=== PATIENT | female | born 1960 | race Caucasian/White ===

== ENCOUNTER 2020-09-16 20:31 | Inpatient (IN) | payer OTHER ==
[2020-09-16 21:26] VITALS: BMI 23.3
[2020-09-16] MEDS ORDERED: Ondansetron PF 4 MG/2 ML Vial IVP PRN (21:37)
--- NOTE | 2020-09-16 22:38 | PDOC.HHP ---
Hospitalist HPI I have problem with my blood History of Present Illness: Patient has 60-year-old female with PMH of autoimmune decompensated cirrhosis (ascites, esophageal varices), and glomerulonephritis (on HD ) who was sent from [facility] rehab by Dr. Vallecillo for treatment of her glomerulonephritis with high-dose steroid. Patient is not exactly sure why she is at the hospital, but she thinks she is here because she has "problem with her blood". Patient was admitted at [facility] in early August for upper GI bleed due to esophageal varices, she subsequently underwent banding. She also required paracentesis. During her admission she was also found to have PAZ, requiring HD, she is currently on // schedule. Kidney biopsy result showed ANCA Vasculitis. Patient is being admitted for high dose steroid treatment. Allergies/Adverse Reactions: Allergy/AdvReac Type Severity Reaction Status Date / Time codeine Allergy Verified 09/16/20 21:21 Past History: PMHx: autoimmune/PBC decompensated cirrhosis (ascites, esophageal varices), and glomerulonephritis (on HD /) PSHx: Right thumb surgery FHx: Noncontributory Social: Former smoker, denies alcohol or drug use Hospitalist HPI ROS Constitutional: denies: fever, chills ENT: denies: throat pain Respiratory: denies: shortness of breath Cardiovascular: denies: chest pain Gastrointestinal: reports: other (Negative for blood in the stool). denies: nausea, vomiting, abdominal pain Genitourinary: denies: dysuria Skin: denies: rash Other: Negative for STALLWORTH All other systems reviewed; all pertinent +/- noted in HPI/Subj Hospitalist Exam Vitals: Weight Weight 119 lb 3.2 oz General Appearance: NAD Eye: PERRL ENT: moist mucosa Neck: supple Heart: RRR, no murmur Respiratory: CTAB Gastrointestinal: soft, non-tender Gastrointestinal - other findings: mildly distended Extremities: no edema Neurological: normal sensation to touch, no weakness Musculoskeletal: normal strength Psychiatric: normal affect, A&O x 3 Hospitalist Results Result Diagrams: 09/16/20 23:55 Hospitalist H&P A/P (1) Glomerulonephritis Code(s): N05.9 - UNSP NEPHRITIC SYNDROME WITH UNSPECIFIED MORPHOLOGIC CHANGES Status: Acute Assessment and Plan: On HD. Recent biopsy done at outside hospital showed ANCA Vasculitis plan: -nephrology consulted -methylprednisolone 125 mg iv daily. Will ask nephrology to adjust the dose (2) Decompensated hepatic cirrhosis Code(s): K72.90 - HEPATIC FAILURE, UNSPECIFIED WITHOUT COMA; K74.60 - UNSPECIFIED CIRRHOSIS OF LIVER Status: Chronic Assessment and Plan: Due to autoimmune hepatitis. Associated with history of esophageal varices and ascites. Plan: -continue Lactulose, Protonix, and midodrine -hold home prednisone, as patient is started on methylprednisolone as above (3) Iron deficiency anemia Code(s): D50.9 - IRON DEFICIENCY ANEMIA, UNSPECIFIED Status: Chronic Qualifiers: Iron deficiency anemia type: chronic blood loss Qualified Code(s): D50.0 - Iron deficiency anemia secondary to blood loss (chronic) Assessment and Plan: No previous Hgb level in chart. It was 8.6 on 09/13 on a lab drawn at outside hospital. Plan: -continue iron supplement
[2020-09-17 00:23] LABS: ALT (SGPT) 13 U/L (8-55); AST (SGOT) 18 U/L (5-34); Alkaline Phosphatase 189 U/L (40-110); Anion Gap 15 mmol/L (10-20); BUN (Urea Nitrogen) 21 mg/dL (9.8-20.1); Bilirubin, Total 0.9 mg/dL (0.2-1.2); Calc. Creatinine Clearance 16 mL/min (70-130); Calcium 7.9 mg/dL (7.8-10.44); Carbon Dioxide 24 mmol/L (23-31); Chloride 100 mmol/L (98-107); Globulin 1.9 g/dL (2.4-3.5); Glucose 154 mg/dL (80-115); Potassium 3.7 mmol/L (3.5-5.1); Protein, Total 4.9 g/dL (5.8-8.1); Sodium 135 mmol/L (136-145)
[2020-09-17 06:01] LABS: INR-International Normal Ratio 1.2; PTT 29.5 sec (22.9-36.1); Prothrombin Time 15.7 sec (12.0-14.7)
[2020-09-17 06:19] LABS: Anion Gap 15 mmol/L (10-20); BUN (Urea Nitrogen) 23 mg/dL (9.8-20.1); CRP (Inflammatory) 2.79 mg/dL (= or < 0.5); Calc. Creatinine Clearance 16 mL/min (70-130); Calcium 7.9 mg/dL (7.8-10.44); Carbon Dioxide 24 mmol/L (23-31); Chloride 100 mmol/L (98-107); Glucose 132 mg/dL (80-115); Potassium 3.8 mmol/L (3.5-5.1); Sodium 135 mmol/L (136-145)
[2020-09-17 06:24] LABS: Band 1 % (5-11); Lymphocytes 56 % (21-51); MDiff Complete? YES; Mean Corpuscular HGB CONC 32.7 g/dL (32.0-36.0); Mean Corpuscular Hemoglobin 28.9 pg (27.0-31.0); Mean Corpuscular Volume 88.2 fL (78.0-98.0); Mean Platelet Volume 8.9 fL (7.4-10.4); Monocytes 6 % (0-10); Neutrophil 37 % (42-75); Platelet Count 72 thou/uL (130-400); Platelet Morphology Comment Appears Decreased; RBC Distribution Width 19.6 % (11.5-14.5); Red Blood Cell (RBC) Count 2.43 mill/uL (4.20-5.40); White Blood Cell (WBC) Count 2.3 thou/uL (4.8-10.8)
[2020-09-17] MEDS ORDERED: methylPREDNISolone Sod Succ/PF 125 MG/2 ML VIAL IVP SCH (09:00)
[2020-09-17] MEDS ORDERED: Sulfameth/Trimethoprim SS 400-80MG TAB PO SCH (09:00)
[2020-09-17] MEDS ORDERED: predniSONE 20 MG TAB PO SCH (09:00)
[2020-09-17] MEDS: Pantoprazole 40 MG GRANULES PACKET PO SCH (09:55)
[2020-09-17] MEDS: Fluconazole 100 MG TAB PO SCH (09:55)
[2020-09-17] MEDS: Midodrine HCl 5 MG TAB PO SCH ×3 (09:56→21:02)
[2020-09-17] MEDS: Ferrous Sulfate 325 MG TAB PO SCH ×2 (09:56→16:54)
[2020-09-17] MEDS: Folic Acid 1 MG TAB PO SCH (09:56)
[2020-09-17] MEDS ORDERED: SODIUM CHLORIDE 0.9% IVPB SCH (10:00)
[2020-09-17] MEDS ORDERED: RITUXAN IVPB SCH (10:00)
[2020-09-17] MEDS: methylPREDNISolone Sod Succ 1 GM in Sodium Chloride 0.9% 250 ML 250 ML IVPB SCH (10:04)
[2020-09-17] MEDS ORDERED: Loperamide HCl 2 MG CAP PO PRN (11:48)
[2020-09-17] MEDS ORDERED: Simethicone Chewable 80 MG TAB PO PRN (11:48)
[2020-09-17] MEDS ORDERED: Acetaminophen 500 MG TAB PO PRN ×2 (11:58→18:18)
[2020-09-17] MEDS ORDERED: Calcium Carbonate 500 MG ChewTAB PO PRN (11:59)
[2020-09-17] MEDS ORDERED: Cholecalciferol 1,000 UNITS (25 MCG) TAB PO SCH (12:00)
--- NOTE | 2020-09-17 12:07 | PDOC.HOSPP ---
- Subjective Encounter Date: 09/17/20 (f/u glomerulonephritis) Encounter Time: 12:04 Subjective: Pt is without complaints. She was admitted overnight for worsening glomerulonephritis for IV steroids in consultation with Dr. Vallecillo. She denies any n/v/abd pain or any pain in general. - Objective Vital Signs & Weight: Vital Signs (12 hours) Temp Pulse Resp BP Pulse Ox 09/17/20 07:00 97.8 F 70 18 109/66 97 09/17/20 05:57 97.7 F 75 20 95/63 96 09/17/20 00:53 98.1 F 70 20 100/59 L 95 Weight Weight 119 lb 3.2 oz Result Diagrams: 09/17/20 05:30 09/17/20 05:30 Hospitalist ROS - Medication Medications: Active Medications Generic Name Dose Route Start Last Admin Trade Name Freq PRN Reason Stop Dose Admin Ferrous Sulfate 325 mg 09/17/20 08:00 09/17/20 09:56 Ferrous Sulfate 325 Mg Tab PO 325 mg BID-WM CHANO Administration Fluconazole 200 mg 09/17/20 09:00 09/17/20 09:55 Fluconazole 100 Mg Tab PO 200 mg DAILY CHANO Administration Folic Acid 1 mg 09/17/20 09:00 09/17/20 09:56 Folic Acid 1 Mg Tab PO 1 mg DAILY CHANO Administration Methylprednisolone Sodium 266 mls @ 266 mls/hr 09/17/20 09:00 09/17/20 10:04 Succinate 1 gm/ Sodium IVPB 09/19/20 09:59 266 mls Chloride DAILY CHANO Administration Lactulose 30 gm 09/17/20 09:00 09/17/20 10:03 Lactulose 20 Gm/30 Ml Udcup PO 30 gm BID CHANO Administration Midodrine 10 mg 09/17/20 09:00 09/17/20 09:56 Midodrine Hcl 5 Mg Tab PO 10 mg TID CHANO Administration Pantoprazole Sodium 40 mg 09/17/20 09:00 09/17/20 09:55 Pantoprazole 40 Mg Granules Packet PO 40 mg DAILY CHANO Administration Hospitalist Exam Vitals: Vital Signs (12 hours) Temp Pulse Resp BP Pulse Ox 09/17/20 07:00 97.8 F 70 18 109/66 97 09/17/20 05:57 97.7 F 75 20 95/63 96 09/17/20 00:53 98.1 F 70 20 100/59 L 95 Weight Weight 119 lb 3.2 oz General Appearance: NAD Heart: RRR, no murmur Respiratory: CTAB, no wheezes, no rales, no ronchi Gastrointestinal: soft, non-tender, normal bowel sounds Extremities: no cyanosis, no clubbing Extremities - other findings: 1+ edema bilateral Psychiatric: normal affect Hosp A/P (1) Glomerulonephritis Code(s): N05.9 - UNSP NEPHRITIC SYNDROME WITH UNSPECIFIED MORPHOLOGIC CHANGES Status: Acute (2) Decompensated hepatic cirrhosis Code(s): K72.90 - HEPATIC FAILURE, UNSPECIFIED WITHOUT COMA; K74.60 - UNSPECIFIED CIRRHOSIS OF LIVER Status: Chronic (3) Iron deficiency anemia Code(s): D50.9 - IRON DEFICIENCY ANEMIA, UNSPECIFIED Status: Chronic Qualifiers: Iron deficiency anemia type: chronic blood loss Qualified Code(s): D50.0 - Iron deficiency anemia secondary to blood loss (chronic) - Plan Glomerulonephritis on hemodialysis - now on IV solumedrol in consultation with Dr. Vallecillo/Nephrology Decompensated autoimmune hepatitis with cirrhosis - continue home meds of lactulose, protonix, midodrine Pancytopenia - leukopenia and thrombocytopenia appear new with this hospitalization - will t rend - anemia - has been present. - type and screen ordered dvt prophy - has annalise valera gi prophy - on PPI code status - full reveiwed plan of care with patient, no questions or further needs at end of eval
[2020-09-17 17:55] LABS: SARS-CoV-2 PCR by NAA Not Detected (NotDetected)
--- NOTE | 2020-09-17 19:30 | CON ---
DATE OF CONSULTATION: 09/17/2020 SERVICE: Nephrology. REASON FOR CONSULTATION: Acute renal failure. REQUESTING PHYSICIAN: . 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 [facility] to acute onset of hematemesis and acute blood loss anemia. She was found to have a creatinine of 15 and also acute blood loss anemia and abnormal liver enzymes. EGD was done and she was found to have esophageal varices, status post banding and also was resuscitated with blood transfusion. During the hospitalization at [facility], the patient was evaluated further with renal biopsy. Initially, acute renal failure was thought to be due to hepatorenal syndrome, but later due to renal biopsy, was thought to have pauci-immune necrotizing and crescentic glomerulonephritis. The patient also had paracenteses at the hospital and was subsequently started on hemodialysis Saturday, , Saturday and subsequently discharged to rehab for further restorative therapy. Since admission at the [facility], the patient has been making some urine intermittently. 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 The patient also was found to have a positive ANCA of myeloperoxidase type as well as a positive Mitochondrial antibody and Actin antibody. The patient also was seen by GI and impression of autoimmune hepatitis leading to cirrhosis was also made. Of note, the patient was only treated with steroid, which was continued at discharge and there was no treatment for the crescentic glomerulonephritis. The patient denied prior history of renal pathology prior to hospitalization and medical record of 10 from [facility], where she was admitted late May and early June 2020, showed creatinine of 0.5. PAST MEDICAL HISTORY: 1. Liver cirrhosis. 2. Acute renal failure. 3. GI bleeding status post blood transfusion. 4. Esophageal varices status post banding. PAST SURGICAL HISTORY: 1. Paracenteses. 2. Renal biopsy. 3. EGD. FAMILY HISTORY: Reviewed, but noncontributory. SOCIAL HISTORY: Denied smoking, alcohol, or recreational drug use. ALLERGIES: REPORTED ALLERGIC AND ADVERSE REACTION TO CODEINE. MEDICATIONS: Prior to hospital medications, none. At the rehab, the patient was on the following medications: 1. Acetaminophen. 2. Trazodone 25 at bedtime. 3. Ferrous sulfate 325 mg p.o. b.i.d. 4. Folic acid 1 mg p.o. daily. 5. Propranolol 10 mg p.o. t.i.d. 6. Lactulose 20 mg p.o. b.i.d. 7. Midodrine 5 mg p.o. t.i.d. 8. Prednisone 30 mg p.o. daily. 9. Vitamin D 5000 units daily. 10. Rifaximin 550 mg p.o. b.i.d. REVIEW OF SYSTEMS: 12-point review of system performed was negative other than pertinent positives and negatives included in the history of present illness. PHYSICAL EXAMINATION: VITAL SIGNS: Temperature 97.8, pulse 70, respiratory rate 18, SpO2 97% on room air, blood pressure is 109/66. GENERAL: Chronically ill-looking female, frail, in no obvious distress. Anicteric, acyanotic, and afebrile. HEENT: Normocephalic, atraumatic. Oral mucosa is moist. NECK: Supple with no obvious JVD. CARDIOVASCULAR: Regular rhythm and rate with normal heart sounds 1 and 2. RESPIRATORY: Fair air entry bilaterally with no obvious respiratory distress. GI: Full, soft, nontender, nondistended with normal bowel sounds. EXTREMITIES: Trace to mild bilateral leg edema noted. WHEEL LACER AND TRUER: Conscious, alert, oriented x3 with appropriate mental status. Cranial nerves II through XII are grossly intact. The patient moves all extremities. DIAGNOSTIC DATA: CBC earlier today showed WBC count of 2.3, hemoglobin of 7.0, MCV of 88.2, platelet of 72. Coagulation panel showed PT 15.7, INR 1.2, PTT 29.5. Chemistry: Renal panel earlier today showed sodium 135, potassium 3.8, chloride 100, CO2 24, BUN 23, creatinine 3.18, glucose 132, calcium 7.9. ASSESSMENT: 1. 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 Serology was positive for p-ANCA. Of note, the patient had creatinine of 0.5 on June 09, but on August 21, 2020, creatinine was 15.5. She thought renal syndrome as well as hemodynamic factors may have been contributory as patient has acute blood loss anemia at presentation and also was found to have esophageal varices, cirrhosis, and acute blood loss anemia. 2. 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 3. Acute renal failure, now on hemodialysis Saturday, , and Saturday. 4. Liver cirrhosis with peritonitis and esophageal varices status post banding. 5. Acute anemia: Due to acute blood loss anemia requiring transfusion, acute illness as well as anemia of chronic illness and chronic kidney disease. 6. Physical deconditioning. In view of severity of pauci-immune ANCA vasculitis, now with end-organ failure glomerulonephritis, now on hemodialysis. The patient needs treatment as soon as possible, hence decision was made to transfer the patient to the acute hospital for treatment. We will go ahead and start with steroid of 1 g daily. We will also give patient 1 g of rituximab to be repeated in 2 weeks. We will also get CRP, ESR, and urinalysis with microscopy to track treatment surface or otherwise. Monitor H and H and transfuse as needed. Further treatment to follow depending on hospital course. Job ID: [id number]
[2020-09-17 20:22] LABS: Bilirubin Negative (Negative); Blood, Urine 3+ (Negative); Clarity Clear (Clear); Glucose, Urine (Dipstick) Normal (Negative); Ketone, Urine Negative (Negative); Leukocyte 75 Leu/uL (Negative); Nitrite Negative (Negative); Protein, Urine (Dipstick) 70 mg/dL (Neg-Trace); Renal Epithelial 0-3 HPF (None Seen); Specific Gravity, Urine 1.013 (1.002-1.036); Squamous Epithelial None Seen HPF (0-3); Urobilinogen Normal mg/dL (Less than 2); Yeast-Budding 1+ HPF (None Seen); pH, Urine 6.5 (5.0-9.0)
[2020-09-17 20:28] LABS: Bacteria/HPF 1+ HPF (None Seen)
[2020-09-17 20:30] LABS: Creatinine, Urine 112.89 mg/dL (47-110)
[2020-09-17] MEDS: Rifaximin 550 MG TAB PO SCH (21:02)
[2020-09-18 04:10] LABS: #Lymphocytes 0.5 thou/uL (1.20-3.40); #Monocytes 0.4 thou/uL (0.11-0.59); %Basophils 0.6 % (0.0-1.0); %Eosinophils 0.1 % (0.0-10.0); %Lymphocytes 16.9 % (21.0-51.0); %Monocytes 13.8 % (0.0-10.0); %Neutrophils 68.7 % (42.0-75.0); Hemoglobin 7.6 g/dL (12.0-16.0); Mean Corpuscular HGB CONC 32.7 g/dL (32.0-36.0); Mean Corpuscular Hemoglobin 28.9 pg (27.0-31.0); Mean Corpuscular Volume 88.4 fL (78.0-98.0); Mean Platelet Volume 8.8 fL (7.4-10.4); Platelet Count 111 thou/uL (130-400); RBC Distribution Width 20.2 % (11.5-14.5); Red Blood Cell (RBC) Count 2.64 mill/uL (4.20-5.40); White Blood Cell (WBC) Count 2.9 thou/uL (4.8-10.8)
[2020-09-18 04:34] LABS: Anion Gap 18 mmol/L (10-20); BUN (Urea Nitrogen) 38 mg/dL (9.8-20.1); Calc. Creatinine Clearance 13 mL/min (70-130); Calcium 7.8 mg/dL (7.8-10.44); Carbon Dioxide 22 mmol/L (23-31); Chloride 99 mmol/L (98-107); Glucose 138 mg/dL (80-115); Potassium 4.1 mmol/L (3.5-5.1); Sodium 135 mmol/L (136-145)
[2020-09-18] MEDS: methylPREDNISolone Sod Succ 1 GM in Sodium Chloride 0.9% 250 ML 250 ML IVPB SCH (09:33)
[2020-09-18] MEDS: Polyethylene Glycol 3350 17 GM Packet PO SCH (09:39)
[2020-09-18] MEDS: Ferrous Sulfate 325 MG TAB PO SCH ×3 (09:40→16:01)
[2020-09-18] MEDS: Fluconazole 100 MG TAB PO SCH (09:40)
[2020-09-18] MEDS: Rifaximin 550 MG TAB PO SCH ×2 (09:41→20:05)
[2020-09-18] MEDS: Pantoprazole 40 MG GRANULES PACKET PO SCH (09:41)
[2020-09-18] MEDS: Midodrine HCl 5 MG TAB PO SCH ×3 (09:41→20:05)
[2020-09-18] MEDS: Folic Acid 1 MG TAB PO SCH (09:41)
--- NOTE | 2020-09-18 10:46 | PDOC.NEPPN ---
- Subjective Encounter Date: 09/18/20 Subjective: Seen and examined. No new problem. Tolerated rituximad well last night. - Objective Vital Signs & Weight: Vital Signs (12 hours) Temp Pulse Resp BP Pulse Ox 09/18/20 07:27 97.9 F 85 18 88/50 L 96 09/18/20 03:10 105/55 L 09/18/20 03:00 105/55 L 09/18/20 02:30 102/59 L 09/18/20 02:00 113/57 L 09/18/20 01:15 110/56 L 09/18/20 00:45 107/53 L 09/18/20 00:15 105/55 L 09/17/20 23:46 108/54 L 09/17/20 23:06 98.2 F 82 16 115/66 97 Weight Admit Weight 119 lb 3.2 oz Weight 119 lb 3.192 oz I&O: 09/17/20 09/18/20 09/19/20 06:59 06:59 06:59 Intake Total 1120 Balance 1120 Result Diagrams: 09/18/20 03:54 09/18/20 03:54 Nephrology ROS - Medication Medications: Active Medications Generic Name Dose Route Start Last Admin Trade Name Freq PRN Reason Stop Dose Admin Cholecalciferol 5,000 units 09/17/20 12:00 09/17/20 14:54 Cholecalciferol 1,000 Units (25 Mcg) Tab PO 5,000 units Q7D CHANO Administration Ferrous Sulfate 325 mg 09/17/20 08:00 09/18/20 09:41 Ferrous Sulfate 325 Mg Tab PO Not Given BID-[facility] Ferrous Sulfate 325 mg 09/18/20 09:00 09/18/20 09:40 Ferrous Sulfate 325 Mg Tab PO 325 mg DAILY CHANO Administration Fluconazole 200 mg 09/17/20 09:00 09/18/20 09:40 Fluconazole 100 Mg Tab PO 200 mg DAILY CHANO Administration Folic Acid 1 mg 09/17/20 09:00 09/18/20 09:41 Folic Acid 1 Mg Tab PO 1 mg DAILY CHANO Administration Methylprednisolone Sodium 266 mls @ 266 mls/hr 09/17/20 09:00 09/18/20 09:33 Succinate 1 gm/ Sodium IVPB 09/19/20 09:59 266 mls Chloride DAILY CHANO Administration Lactulose 30 gm 09/17/20 09:00 02/07/21 09:40 Lactulose 20 Gm/30 Ml Udcup PO 30 gm BID CHANO Administration Midodrine 10 mg 09/17/20 09:00 09/18/20 09:41 Midodrine Hcl 5 Mg Tab PO 10 mg TID CHANO Administration Pantoprazole Sodium 40 mg 09/17/20 09:00 09/18/20 09:41 Pantoprazole 40 Mg Granules Packet PO 40 mg DAILY CHANO Administration Polyethylene Glycol 17 gm 09/18/20 09:00 09/18/20 09:39 Polyethylene Glycol 3350 17 Gm Packet PO 17 gm DAILY CHANO Administration Rifaximin 550 mg 09/17/20 21:00 09/18/20 09:41 Rifaximin 550 Mg Tab PO 550 mg BID CHANO Administration - Exam General Appearance: awake alert Eye: anicteric sclera ENT: normocephalic atraumatic Neck: symmetric Respiratory: no ronchi, no tachypnea Respiratory - other findings: fair air entry with some transmitted sound Cardiovascular: RRR Gastrointestinal: soft, non-distended, normal bowel sounds Extremities: 1+ LE edema Neurological: CN's grossly intact, no focal deficits Musculoskeletal: generalized weakness, diffuse muscle atrophy PSYCH: A&O x 3 Nephrology Results - Labs Result Diagrams: 09/18/20 03:54 09/18/20 03:54 Lab results: WBC 2.9 thou/uL (4.8-10.8) L 09/18/20 03:54 Hgb 7.6 g/dL (12.0-16.0) L 09/18/20 03:54 Hct 23.3 % (36.0-47.0) L 09/18/20 03:54 MCV 88.4 fL (78.0-98.0) 09/18/20 03:54 Plt Count 111 thou/uL (130-400) L 09/18/20 03:54 Neutrophils % 68.7 % (42.0-75.0) 09/18/20 03:54 Band Neuts % (Manual) 1 % (5-11) L 09/17/20 05:30 ESR Westergren Less than 1 mm/hr (Less than 30) 09/17/20 05:30 Sodium 135 mmol/L (136-145) L 09/18/20 03:54 Potassium 4.1 mmol/L (3.5-5.1) 09/18/20 03:54 Chloride 99 mmol/L (98-107) 09/18/20 03:54 Carbon Dioxide 22 mmol/L (23-31) L 09/18/20 03:54 BUN 38 mg/dL (9.8-20.1) H 09/18/20 03:54 Creatinine 3.70 mg/dL (0.6-1.1) H 09/18/20 03:54 Glucose 138 mg/dL (80-115) H 09/18/20 03:54 Calcium 7.8 mg/dL (7.8-10.44) 09/18/20 03:54 Total Bilirubin 0.9 mg/dL (0.2-1.2) 09/16/20 23:55 AST 18 U/L (5-34) 09/16/20 23:55 ALT 13 U/L (8-55) 09/16/20 23:55 Alkaline Phosphatase 189 U/L (40-110) H 09/16/20 23:55 C-Reactive Protein 2.79 mg/dL (= or < 0.5) H 09/17/20 05:30 Serum Total Protein 4.9 g/dL (5.8-8.1) L 09/16/20 23:55 Albumin 3.0 g/dL (3.4-4.8) L 09/16/20 23:55 Urine Ketones Negative mg/dL (Negative) 09/17/20 18:30 Urine Blood 3+ (Negative) A 09/17/20 18:30 Urine Nitrite Negative (Negative) 09/17/20 18:30 Ur Leukocyte Esterase 75 Yesi/uL (Negative) A 09/17/20 18:30 Urine RBC 11-20 HPF (0-3) A 09/17/20 18:30 Urine WBC 11-20 HPF (0-3) A 09/17/20 18:30 Ur Squamous Epith Cells None Seen HPF (0-3) 09/17/20 18:30 Urine Bacteria 1+ HPF (None Seen) A 09/17/20 18:30 Sodium 135 mmol/L (136-145) L 09/18/20 03:54 Potassium 4.1 mmol/L (3.5-5.1) 09/18/20 03:54 Chloride 99 mmol/L (98-107) 09/18/20 03:54 Carbon Dioxide 22 mmol/L (23-31) L 09/18/20 03:54 Anion Gap 18 mmol/L (10-20) 09/18/20 03:54 BUN 38 mg/dL (9.8-20.1) H 09/18/20 03:54 Creatinine 3.70 mg/dL (0.6-1.1) H 09/18/20 03:54 Glucose 138 mg/dL (80-115) H 09/18/20 03:54 Calcium 7.8 mg/dL (7.8-10.44) 09/18/20 03:54 Albumin 3.0 g/dL (3.4-4.8) L 09/16/20 23:55 Nephrology AP PN - Plan Acute renal failure requiring HD. Last HD on 09/15/20. Due Pauci immune GN. 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 S/p Rituxima on 09/17/20. 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 PCM Acute anemia PLan Continue pulse steroid 1 g daily. last dose tomorrow 09/19/20. No HD today as volume status electrolytes and acid base are acceptable. Start nepro Continue other treatments. Will need repeat Rituxima in 2 weeks. Follow renal function and H/H
--- NOTE | 2020-09-18 11:58 | PDOC.HOSPP ---
- Subjective Encounter Date: 09/18/20 (f/u acute on chronic renal disease) Encounter Time: 11:53 Subjective: Pt without any complaints today. She reports feeling well. She denies any cp/sob/n/v/abd pain. - Objective Vital Signs & Weight: Vital Signs (12 hours) Temp Pulse Resp BP Pulse Ox 09/18/20 11:47 98.2 F 66 18 106/55 L 97 09/18/20 07:27 97.9 F 85 18 88/50 L 96 09/18/20 03:10 105/55 L 09/18/20 03:00 105/55 L 09/18/20 02:30 102/59 L 09/18/20 02:00 113/57 L 09/18/20 01:15 110/56 L 09/18/20 00:45 107/53 L 09/18/20 00:15 105/55 L Weight Admit Weight 119 lb 3.2 oz Weight 119 lb 3.192 oz I&O: 09/17/20 09/18/20 09/19/20 06:59 06:59 06:59 Intake Total 1120 Balance 1120 Result Diagrams: 09/18/20 03:54 09/18/20 03:54 Hospitalist ROS - Medication Medications: Active Medications Generic Name Dose Route Start Last Admin Trade Name Marcq PRN Reason Stop Dose Admin Cholecalciferol 5,000 units 09/17/20 12:00 09/17/20 14:54 Cholecalciferol 1,000 Units (25 Mcg) Tab PO 5,000 units Q7D CAHNO Administration Ferrous Sulfate 325 mg 09/17/20 08:00 09/18/20 09:41 Ferrous Sulfate 325 Mg Tab PO Not Given BID- CHANO Ferrous Sulfate 325 mg 09/18/20 09:00 09/18/20 09:40 Ferrous Sulfate 325 Mg Tab PO 325 mg DAILY CHANO Administration Fluconazole 200 mg 09/17/20 09:00 09/18/20 09:40 Fluconazole 100 Mg Tab PO 200 mg DAILY CHANO Administration Folic Acid 1 mg 09/17/20 09:00 09/18/20 09:41 Folic Acid 1 Mg Tab PO 1 mg DAILY CHANO Administration Methylprednisolone Sodium 266 mls @ 266 mls/hr 09/17/20 09:00 09/18/20 09:33 Succinate 1 gm/ Sodium IVPB 09/19/20 09:59 266 mls Chloride DAILY CHANO Administration Lactulose 30 gm 09/17/20 09:00 09/18/20 09:40 Lactulose 20 Gm/30 Ml Udcup PO 30 gm BID CHANO Administration Midodrine 10 mg 09/17/20 09:00 09/18/20 09:41 Midodrine Hcl 5 Mg Tab PO 10 mg TID CHANO Administration Pantoprazole Sodium 40 mg 09/17/20 09:00 09/18/20 09:41 Pantoprazole 40 Mg Granules Packet PO 40 mg DAILY CHANO Administration Polyethylene Glycol 17 gm 09/18/20 09:00 09/18/20 09:39 Polyethylene Glycol 3350 17 Gm Packet PO 17 gm DAILY CHANO Administration Rifaximin 550 mg 09/17/20 21:00 09/18/20 09:41 Rifaximin 550 Mg Tab PO 550 mg BID CHANO Administration Hospitalist Exam Vitals: Vital Signs (12 hours) Temp Pulse Resp BP Pulse Ox 09/18/20 11:47 98.2 F 66 18 106/55 L 97 09/18/20 07:27 97.9 F 85 18 88/50 L 96 09/18/20 03:10 105/55 L 09/18/20 03:00 105/55 L 09/18/20 02:30 102/59 L 09/18/20 02:00 113/57 L 09/18/20 01:15 110/56 L 09/18/20 00:45 107/53 L 09/18/20 00:15 105/55 L Weight Admit Weight 119 lb 3.2 oz Weight 119 lb 3.192 oz General Appearance: NAD Heart: RRR Respiratory: no wheezes, no rales, no ronchi Gastrointestinal: soft, non-tender, non-distended, normal bowel sounds Extremities: no cyanosis, no clubbing, no edema Psychiatric: normal affect Hosp A/P (1) Glomerulonephritis Code(s): N05.9 - UNSP NEPHRITIC SYNDROME WITH UNSPECIFIED MORPHOLOGIC CHANGES Status: Acute (2) Decompensated hepatic cirrhosis Code(s): K72.90 - HEPATIC FAILURE, UNSPECIFIED WITHOUT COMA; K74.60 - UNSPECIFIED CIRRHOSIS OF LIVER Status: Chronic (3) Iron deficiency anemia Code(s): D50.9 - IRON DEFICIENCY ANEMIA, UNSPECIFIED Status: Chronic Qualifiers: Iron deficiency anemia type: chronic blood loss Qualified Code(s): D50.0 - Iron deficiency anemia secondary to blood loss (chronic) - Plan Glomerulonephritis on hemodialysis - rapidly progressive focal 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 Vallecillo/Nephrology - pt has received 1 dose of rituximab Decompensated autoimmune hepatitis with cirrhosis - continue home meds of lactulose, protonix, midodrine Pancytopenia - leukopenia and thrombocytopenia slightly improved today - anemia - has been present. - type and screen ordered Anemia with history of esophageal varices and banding at [facility] after presentation for hematemesis. dvt prophy - has annalise valera gi prophy - on PPI code status - full reveiwed plan of care with patient, no questions or further needs at end of eval
[2020-09-19] MEDS: Fluconazole 100 MG TAB PO SCH (08:55)
[2020-09-19] MEDS: Ferrous Sulfate 325 MG TAB PO SCH (08:55)
[2020-09-19] MEDS: Folic Acid 1 MG TAB PO SCH (08:56)
[2020-09-19] MEDS: Midodrine HCl 5 MG TAB PO SCH ×3 (08:56→21:45)
[2020-09-19] MEDS: methylPREDNISolone Sod Succ 1 GM in Sodium Chloride 0.9% 250 ML 250 ML IVPB SCH (08:56)
[2020-09-19] MEDS: Pantoprazole 40 MG GRANULES PACKET PO SCH (08:57)
[2020-09-19] MEDS: Rifaximin 550 MG TAB PO SCH ×2 (08:57→21:44)
[2020-09-19] MEDS: Polyethylene Glycol 3350 17 GM Packet PO SCH (08:58)
[2020-09-19 09:00] LABS: #Lymphocytes 0.8 thou/uL (1.20-3.40); #Monocytes 0.3 thou/uL (0.11-0.59); #Neutrophils 1.9 thou/uL (1.40-6.50); %Basophils 1.3 % (0.0-1.0); %Eosinophils 0.1 % (0.0-10.0); %Lymphocytes 25.8 % (21.0-51.0); %Monocytes 8.6 % (0.0-10.0); %Neutrophils 64.3 % (42.0-75.0); Hemoglobin 8.2 g/dL (12.0-16.0); Mean Corpuscular HGB CONC 33.1 g/dL (32.0-36.0); Mean Corpuscular Hemoglobin 29.6 pg (27.0-31.0); Mean Corpuscular Volume 89.6 fL (78.0-98.0); Mean Platelet Volume 8.6 fL (7.4-10.4); Platelet Count 93 thou/uL (130-400); RBC Distribution Width 20.3 % (11.5-14.5); Red Blood Cell (RBC) Count 2.78 mill/uL (4.20-5.40); White Blood Cell (WBC) Count 2.9 thou/uL (4.8-10.8)
[2020-09-19 09:22] LABS: Anion Gap 19 mmol/L (10-20); BUN (Urea Nitrogen) 56 mg/dL (9.8-20.1); Calc. Creatinine Clearance 11 mL/min (70-130); Calcium 7.8 mg/dL (7.8-10.44); Carbon Dioxide 21 mmol/L (23-31); Chloride 100 mmol/L (98-107); Glucose 128 mg/dL (80-115); Potassium 4.9 mmol/L (3.5-5.1); Sodium 135 mmol/L (136-145)
--- NOTE | 2020-09-19 12:30 | PDOC.NEPPN ---
- Subjective Encounter Date: 09/19/20 Subjective: No new problem. Feeling better. No nausea, vomiting or abdominal pain. - Objective Vital Signs & Weight: Vital Signs (12 hours) Temp Pulse Resp BP Pulse Ox 09/19/20 08:00 96 09/19/20 07:00 97.8 F 70 16 104/54 L 96 09/19/20 03:38 98 Weight Admit Weight 119 lb 3.2 oz Weight 119 lb 3.192 oz I&O: 09/18/20 09/19/20 09/20/20 06:59 06:59 06:59 Intake Total 1120 200 Balance 1120 200 Result Diagrams: 09/19/20 08:38 09/19/20 08:38 Nephrology ROS - Medication Medications: Active Medications Generic Name Dose Route Start Last Admin Trade Name Freq PRN Reason Stop Dose Admin Cholecalciferol 5,000 units 09/17/20 12:00 09/17/20 14:54 Cholecalciferol 1,000 Units (25 Mcg) Tab PO 5,000 units Q7D CHANO Administration Ferrous Sulfate 325 mg 09/18/20 09:00 09/19/20 08:55 Ferrous Sulfate 325 Mg Tab PO 325 mg DAILY CHANO Administration Fluconazole 200 mg 09/17/20 09:00 09/19/20 08:55 Fluconazole 100 Mg Tab PO 200 mg DAILY CHANO Administration Folic Acid 1 mg 09/17/20 09:00 09/19/20 08:56 Folic Acid 1 Mg Tab PO 1 mg DAILY CHANO Administration Lactulose 30 gm 09/17/20 09:00 09/19/20 09:40 Lactulose 20 Gm/30 Ml Udcup PO Not Given BID CHANO Midodrine 10 mg 09/17/20 09:00 09/19/20 08:56 Midodrine Hcl 5 Mg Tab PO 10 mg TID CHANO Administration Pantoprazole Sodium 40 mg 09/17/20 09:00 09/19/20 08:57 Pantoprazole 40 Mg Granules Packet PO 40 mg DAILY CHANO Administration Polyethylene Glycol 17 gm 09/18/20 09:00 09/19/20 08:58 Polyethylene Glycol 3350 17 Gm Packet PO Not Given DAILY CHANO Rifaximin 550 mg 09/17/20 21:00 09/19/20 08:57 Rifaximin 550 Mg Tab PO 550 mg BID CHANO Administration - Exam General Appearance: awake alert General - other findings: chronically ill lookibng Eye: anicteric sclera ENT: normocephalic atraumatic Neck: supple, symmetric Respiratory - other findings: fair air entry bilaterally Cardiovascular: RRR Gastrointestinal: soft, non-distended, normal bowel sounds Extremities: 1+ LE edema Neurological: CN's grossly intact Musculoskeletal: generalized weakness PSYCH: A&O x 3 Nephrology Results - Labs Result Diagrams: 09/19/20 08:38 09/19/20 08:38 Lab results: WBC 2.9 thou/uL (4.8-10.8) L 09/19/20 08:38 Hgb 8.2 g/dL (12.0-16.0) L 09/19/20 08:38 Hct 24.9 % (36.0-47.0) L 09/19/20 08:38 MCV 89.6 fL (78.0-98.0) 09/19/20 08:38 Plt Count 93 thou/uL (130-400) L 09/19/20 08:38 Neutrophils % 64.3 % (42.0-75.0) 09/19/20 08:38 Band Neuts % (Manual) 1 % (5-11) L 09/17/20 05:30 ESR Westergren Less than 1 mm/hr (Less than 30) 09/17/20 05:30 Sodium 135 mmol/L (136-145) L 09/19/20 08:38 Potassium 4.9 mmol/L (3.5-5.1) 09/19/20 08:38 Chloride 100 mmol/L (98-107) 09/19/20 08:38 Carbon Dioxide 21 mmol/L (23-31) L 09/19/20 08:38 BUN 56 mg/dL (9.8-20.1) H 09/19/20 08:38 Creatinine 4.70 mg/dL (0.6-1.1) H 09/19/20 08:38 Glucose 128 mg/dL (80-115) H 09/19/20 08:38 Calcium 7.8 mg/dL (7.8-10.44) 09/19/20 08:38 Total Bilirubin 0.9 mg/dL (0.2-1.2) 09/16/20 23:55 AST 18 U/L (5-34) 09/16/20 23:55 ALT 13 U/L (8-55) 09/16/20 23:55 Alkaline Phosphatase 189 U/L (40-110) H 09/16/20 23:55 C-Reactive Protein 2.79 mg/dL (= or < 0.5) H 09/17/20 05:30 Serum Total Protein 4.9 g/dL (5.8-8.1) L 09/16/20 23:55 Albumin 3.0 g/dL (3.4-4.8) L 09/16/20 23:55 Urine Ketones Negative mg/dL (Negative) 09/17/20 18:30 Urine Blood 3+ (Negative) A 09/17/20 18:30 Urine Nitrite Negative (Negative) 09/17/20 18:30 Ur Leukocyte Esterase 75 Yesi/uL (Negative) A 09/17/20 18:30 Urine RBC 11-20 HPF (0-3) A 09/17/20 18:30 Urine WBC 11-20 HPF (0-3) A 09/17/20 18:30 Ur Squamous Epith Cells None Seen HPF (0-3) 09/17/20 18:30 Urine Bacteria 1+ HPF (None Seen) A 09/17/20 18:30 Sodium 135 mmol/L (136-145) L 09/19/20 08:38 Potassium 4.9 mmol/L (3.5-5.1) 09/19/20 08:38 Chloride 100 mmol/L (98-107) 09/19/20 08:38 Carbon Dioxide 21 mmol/L (23-31) L 09/19/20 08:38 Anion Gap 19 mmol/L (10-20) 09/19/20 08:38 BUN 56 mg/dL (9.8-20.1) H 09/19/20 08:38 Creatinine 4.70 mg/dL (0.6-1.1) H 09/19/20 08:38 Glucose 128 mg/dL (80-115) H 09/19/20 08:38 Calcium 7.8 mg/dL (7.8-10.44) 09/19/20 08:38 Albumin 3.0 g/dL (3.4-4.8) L 09/16/20 23:55 Nephrology AP PN - Plan Acute renal failure requiring HD. Last HD on 09/15/20. Due Pauci immune GN. Still oliguric and requiring HD. 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 S/p Rituximab on 09/17/20. and on pulse steroid. 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 PCM Acute anemia PLan Continue pulse steroid 1 g daily. Last dose today 09/19/20. No HD today as volume status electrolytes and acid base are acceptable though BUN and creat are trending up Continue other treatments. Will need repeat Rituximab in 2 weeks. Will start oral steroid from tomorrow Follow renal function and H/H Can be discharged from Nephrology point of view back to Rehab.
--- NOTE | 2020-09-19 14:41 | PDOC.HOSPP ---
- Subjective Encounter Date: 09/19/20 Encounter Time: 14:39 Subjective: no complaints , ready to [facility] - Objective Vital Signs & Weight: Vital Signs (12 hours) Temp Pulse Resp BP Pulse Ox 09/19/20 08:00 96 09/19/20 07:00 97.8 F 70 16 104/54 L 96 09/19/20 03:38 98 Weight Admit Weight 119 lb 3.2 oz Weight 119 lb 3.192 oz I&O: 09/18/20 09/19/20 09/20/20 06:59 06:59 06:59 Intake Total 1120 200 Balance 1120 200 Result Diagrams: 09/19/20 08:38 09/19/20 08:38 Hospitalist ROS - Medication Medications: Active Medications Generic Name Dose Route Start Last Admin Trade Name Freq PRN Reason Stop Dose Admin Cholecalciferol 5,000 units 09/17/20 12:00 09/17/20 14:54 Cholecalciferol 1,000 Units (25 Mcg) Tab PO 5,000 units Q7D CHANO Administration Ferrous Sulfate 325 mg 09/18/20 09:00 09/19/20 08:55 Ferrous Sulfate 325 Mg Tab PO 325 mg DAILY CHANO Administration Fluconazole 200 mg 09/17/20 09:00 09/19/20 08:55 Fluconazole 100 Mg Tab PO 200 mg DAILY CHANO Administration Folic Acid 1 mg 09/17/20 09:00 09/19/20 08:56 Folic Acid 1 Mg Tab PO 1 mg DAILY CHANO Administration Lactulose 30 gm 09/17/20 09:00 09/19/20 09:40 Lactulose 20 Gm/30 Ml Udcup PO Not Given BID CHANO Midodrine 10 mg 09/17/20 09:00 09/19/20 08:56 Midodrine Hcl 5 Mg Tab PO 10 mg TID CHANO Administration Pantoprazole Sodium 40 mg 09/17/20 09:00 09/19/20 08:57 Pantoprazole 40 Mg Granules Packet PO 40 mg DAILY CHANO Administration Polyethylene Glycol 17 gm 09/18/20 09:00 09/19/20 08:58 Polyethylene Glycol 3350 17 Gm Packet PO Not Given DAILY CHANO Rifaximin 550 mg 09/17/20 21:00 09/19/20 08:57 Rifaximin 550 Mg Tab PO 550 mg BID CHANO Administration Hospitalist Exam Vitals: Vital Signs (12 hours) Temp Pulse Resp BP Pulse Ox 09/19/20 08:00 96 09/19/20 07:00 97.8 F 70 16 104/54 L 96 09/19/20 03:38 98 Weight Admit Weight 119 lb 3.2 oz Weight 119 lb 3.192 oz General Appearance: awake alert Neck: no JVD Heart: RRR, no murmur Respiratory: CTAB, normal chest expansion Gastrointestinal: soft, non-distended, normal bowel sounds Extremities: no edema Hosp A/P (1) Glomerulonephritis Code(s): N05.9 - UNSP NEPHRITIC SYNDROME WITH UNSPECIFIED MORPHOLOGIC CHANGES Status: Acute (2) Decompensated hepatic cirrhosis Code(s): K72.90 - HEPATIC FAILURE, UNSPECIFIED WITHOUT COMA; K74.60 - UNSPECIFIED CIRRHOSIS OF LIVER Status: Chronic (3) Pancytopenia Code(s): D61.818 - OTHER PANCYTOPENIA Status: Acute (4) CKD (chronic kidney disease) stage 5, GFR less than 15 ml/min Code(s): N18.5 - CHRONIC KIDNEY DISEASE, STAGE 5 Status: Acute - Plan intense iv steroids plus retuximab completed ready to return to Rehab unfortunately , her insurance requireas repeat referral process approval pending
[2020-09-19] MEDS ORDERED: traMADol HCl 50 MG TAB PO SCH (18:45)
[2020-09-20 06:11] LABS: ALT (SGPT) 32 U/L (8-55); AST (SGOT) 31 U/L (5-34); Albumin 2.9 g/dL (3.4-4.8); Alkaline Phosphatase 306 U/L (40-110); Anion Gap 21 mmol/L (10-20); BUN (Urea Nitrogen) 70 mg/dL (9.8-20.1); Bilirubin, Total 1.2 mg/dL (0.2-1.2); Calc. Creatinine Clearance 10 mL/min (70-130); Calcium 7.5 mg/dL (7.8-10.44); Carbon Dioxide 18 mmol/L (23-31); Chloride 99 mmol/L (98-107); Globulin 2.1 g/dL (2.4-3.5); Glucose 131 mg/dL (80-115); Sodium 133 mmol/L (136-145)
[2020-09-20] MEDS: Ferrous Sulfate 325 MG TAB PO SCH (08:34)
[2020-09-20] MEDS: Fluconazole 100 MG TAB PO SCH (08:35)
[2020-09-20] MEDS: Folic Acid 1 MG TAB PO SCH (08:36)
[2020-09-20] MEDS: Midodrine HCl 5 MG TAB PO SCH ×3 (08:37→21:47)
[2020-09-20] MEDS: Rifaximin 550 MG TAB PO SCH ×2 (08:38→21:47)
[2020-09-20] MEDS: Pantoprazole 40 MG GRANULES PACKET PO SCH (08:40)
[2020-09-20] MEDS: Polyethylene Glycol 3350 17 GM Packet PO SCH (08:40)
[2020-09-20] MEDS: prednisoLONE 10 MG ODT TAB PO SCH (08:53)
--- NOTE | 2020-09-20 09:10 | PDOC.NEPPN ---
- Subjective Encounter Date: 09/20/20 Subjective: Seen and examined. No new problem. - Objective Vital Signs & Weight: Vital Signs (12 hours) Temp Pulse Resp BP Pulse Ox 09/20/20 07:56 97.6 F 67 16 116/69 98 09/20/20 04:00 97.5 F L 62 18 115/57 L 97 09/20/20 02:49 96 09/20/20 00:27 64 16 104/52 L Weight Admit Weight 119 lb 3.2 oz Weight 119 lb 8 oz I&O: 09/19/20 09/20/20 09/21/20 06:59 06:59 06:59 Intake Total 200 1350 Balance 200 1350 Result Diagrams: 09/19/20 08:38 09/20/20 05:39 Nephrology ROS - Medication Medications: Active Medications Generic Name Dose Route Start Last Admin Trade Name Freq PRN Reason Stop Dose Admin Cholecalciferol 5,000 units 09/17/20 12:00 09/17/20 14:54 Cholecalciferol 1,000 Units (25 Mcg) Tab PO 5,000 units Q7D CHANO Administration Ferrous Sulfate 325 mg 09/18/20 09:00 09/20/20 08:34 Ferrous Sulfate 325 Mg Tab PO 325 mg DAILY CHANO Administration Fluconazole 200 mg 09/17/20 09:00 09/20/20 08:35 Fluconazole 100 Mg Tab PO 200 mg DAILY CHANO Administration Folic Acid 1 mg 09/17/20 09:00 09/20/20 08:36 Folic Acid 1 Mg Tab PO 1 mg DAILY CHANO Administration Lactulose 30 gm 09/17/20 09:00 09/20/20 08:37 Lactulose 20 Gm/30 Ml Udcup PO Not Given BID CHANO Midodrine 10 mg 09/17/20 09:00 09/20/20 08:37 Midodrine Hcl 5 Mg Tab PO 10 mg TID CHANO Administration Pantoprazole Sodium 40 mg 09/17/20 09:00 09/20/20 08:40 Pantoprazole 40 Mg Granules Packet PO 40 mg DAILY CHANO Administration Polyethylene Glycol 17 gm 09/18/20 09:00 09/20/20 08:40 Polyethylene Glycol 3350 17 Gm Packet PO Not Given DAILY CHANO Prednisolone 50 mg 09/20/20 09:00 09/20/20 08:53 Prednisolone 10 Mg Odt Tab PO 50 mg DAILY CHANO Administration Rifaximin 550 mg 09/17/20 21:00 09/20/20 08:38 Rifaximin 550 Mg Tab PO 550 mg BID CHANO Administration - Exam General Appearance: awake alert Eye: anicteric sclera ENT: normocephalic atraumatic Neck: supple, symmetric Respiratory: normal chest expansion, no tachypnea Respiratory - other findings: fair air entry bilaterally Cardiovascular: RRR Gastrointestinal: soft, non-tender, normal bowel sounds Extremities: 1+ LE edema Neurological: CN's grossly intact Musculoskeletal: generalized weakness PSYCH: A&O x 3 Nephrology Results - Labs Result Diagrams: 09/19/20 08:38 09/20/20 05:39 Lab results: WBC 2.9 thou/uL (4.8-10.8) L 09/19/20 08:38 Hgb 8.2 g/dL (12.0-16.0) L 09/19/20 08:38 Hct 24.9 % (36.0-47.0) L 09/19/20 08:38 MCV 89.6 fL (78.0-98.0) 09/19/20 08:38 Plt Count 93 thou/uL (130-400) L 09/19/20 08:38 Neutrophils % 64.3 % (42.0-75.0) 09/19/20 08:38 Band Neuts % (Manual) 1 % (5-11) L 09/17/20 05:30 ESR Westergren Less than 1 mm/hr (Less than 30) 09/17/20 05:30 Sodium 133 mmol/L (136-145) L 09/20/20 05:39 Potassium 5.0 mmol/L (3.5-5.1) 09/20/20 05:39 Chloride 99 mmol/L (98-107) 09/20/20 05:39 Carbon Dioxide 18 mmol/L (23-31) L 09/20/20 05:39 BUN 70 mg/dL (9.8-20.1) H 09/20/20 05:39 Creatinine 5.18 mg/dL (0.6-1.1) H 09/20/20 05:39 Glucose 131 mg/dL (80-115) H 09/20/20 05:39 Calcium 7.5 mg/dL (7.8-10.44) L 09/20/20 05:39 Total Bilirubin 1.2 mg/dL (0.2-1.2) 09/20/20 05:39 AST 31 U/L (5-34) 09/20/20 05:39 ALT 32 U/L (8-55) 09/20/20 05:39 Alkaline Phosphatase 306 U/L (40-110) H 09/20/20 05:39 C-Reactive Protein 2.79 mg/dL (= or < 0.5) H 09/17/20 05:30 Serum Total Protein 5.0 g/dL (5.8-8.1) L 09/20/20 05:39 Albumin 2.9 g/dL (3.4-4.8) L 09/20/20 05:39 Urine Ketones Negative mg/dL (Negative) 09/17/20 18:30 Urine Blood 3+ (Negative) A 09/17/20 18:30 Urine Nitrite Negative (Negative) 09/17/20 18:30 Ur Leukocyte Esterase 75 Yesi/uL (Negative) A 09/17/20 18:30 Urine RBC 11-20 HPF (0-3) A 09/17/20 18:30 Urine WBC 11-20 HPF (0-3) A 09/17/20 18:30 Ur Squamous Epith Cells None Seen HPF (0-3) 09/17/20 18:30 Urine Bacteria 1+ HPF (None Seen) A 09/17/20 18:30 Sodium 133 mmol/L (136-145) L 09/20/20 05:39 Potassium 5.0 mmol/L (3.5-5.1) 09/20/20 05:39 Chloride 99 mmol/L (98-107) 09/20/20 05:39 Carbon Dioxide 18 mmol/L (23-31) L 09/20/20 05:39 Anion Gap 21 mmol/L (10-20) H 09/20/20 05:39 BUN 70 mg/dL (9.8-20.1) H 09/20/20 05:39 Creatinine 5.18 mg/dL (0.6-1.1) H 09/20/20 05:39 Glucose 131 mg/dL (80-115) H 09/20/20 05:39 Calcium 7.5 mg/dL (7.8-10.44) L 09/20/20 05:39 Albumin 2.9 g/dL (3.4-4.8) L 09/20/20 05:39 Nephrology AP PN - Plan Acute renal failure requiring HD. Last HD on 09/15/20. Due Pauci immune GN. Still oliguric and requiring HD. 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 PCM Acute anemia Funguria: Assymptomatic Immunocompromised host PLan Start 50 mg of prednisoone orally For HD today. Will continue TTS as there is still no significant renal recovery Will need repeat Rituximab in 2 weeks. Continue fluconazole for assymptomatic funguria in immonocompromised host. Continue bactrim for PCP prophylaxis Follow renal function and H/H Can be discharged from Nephrology point of view back to Rehab.
[2020-09-20] MEDS ORDERED: Heparin 10,000 UNITS/ 10 ML VIAL ONE (09:45)
[2020-09-20] MEDS ORDERED: Sulfameth/Trimethoprim SS 400-80MG TAB PO SCH (12:00)
--- NOTE | 2020-09-20 14:02 | PDOC.HOSPP ---
- Subjective Encounter Date: 09/20/20 Encounter Time: 14:00 Subjective: no change - Objective Vital Signs & Weight: Vital Signs (12 hours) Temp Pulse Resp BP Pulse Ox 09/20/20 12:34 97.3 F L 74 18 98/54 L 94 L 09/20/20 08:00 98 09/20/20 07:56 97.6 F 67 16 116/69 98 09/20/20 04:00 97.5 F L 62 18 115/57 L 97 09/20/20 02:49 96 Weight Admit Weight 119 lb 3.2 oz Weight 119 lb 8 oz I&O: 09/19/20 09/20/20 09/21/20 06:59 06:59 06:59 Intake Total 200 1350 Balance 200 1350 Result Diagrams: 09/19/20 08:38 09/20/20 05:39 Hospitalist ROS - Medication Medications: Active Medications Generic Name Dose Route Start Last Admin Trade Name Freq PRN Reason Stop Dose Admin Cholecalciferol 5,000 units 09/17/20 12:00 09/17/20 14:54 Cholecalciferol 1,000 Units (25 Mcg) Tab PO 5,000 units Q7D CHANO Administration Ferrous Sulfate 325 mg 09/18/20 09:00 09/20/20 08:34 Ferrous Sulfate 325 Mg Tab PO 325 mg DAILY CHANO Administration Fluconazole 200 mg 09/17/20 09:00 09/20/20 08:35 Fluconazole 100 Mg Tab PO 200 mg DAILY CHANO Administration Folic Acid 1 mg 09/17/20 09:00 09/20/20 08:36 Folic Acid 1 Mg Tab PO 1 mg DAILY CHANO Administration Lactulose 30 gm 09/17/20 09:00 09/20/20 08:37 Lactulose 20 Gm/30 Ml Udcup PO Not Given BID CHANO Midodrine 10 mg 09/17/20 09:00 09/20/20 08:37 Midodrine Hcl 5 Mg Tab PO 10 mg TID CHANO Administration Pantoprazole Sodium 40 mg 09/17/20 09:00 09/20/20 08:40 Pantoprazole 40 Mg Granules Packet PO 40 mg DAILY CHANO Administration Polyethylene Glycol 17 gm 09/18/20 09:00 09/20/20 08:40 Polyethylene Glycol 3350 17 Gm Packet PO Not Given DAILY CHANO Prednisolone 50 mg 09/20/20 09:00 09/20/20 08:53 Prednisolone 10 Mg Odt Tab PO 50 mg DAILY CHANO Administration Rifaximin 550 mg 09/17/20 21:00 09/20/20 08:38 Rifaximin 550 Mg Tab PO 550 mg BID CHANO Administration Trimethoprim/Sulfamethoxazole 0 tab 09/20/20 12:00 09/20/20 13:59 Sulfameth/Trimethoprim Ss 400-80mg Tab PO 1 tab TuThSa CHANO Administration Hospitalist Exam Vitals: Vital Signs (12 hours) Temp Pulse Resp BP Pulse Ox 09/20/20 12:34 97.3 F L 74 18 98/54 L 94 L 09/20/20 08:00 98 09/20/20 07:56 97.6 F 67 16 116/69 98 09/20/20 04:00 97.5 F L 62 18 115/57 L 97 09/20/20 02:49 96 Weight Admit Weight 119 lb 3.2 oz Weight 119 lb 8 oz General Appearance: awake alert Neck: no JVD Heart: RRR, no murmur Respiratory: CTAB Gastrointestinal: soft, non-distended, normal bowel sounds Extremities: no edema Hosp A/P (1) Glomerulonephritis Code(s): N05.9 - UNSP NEPHRITIC SYNDROME WITH UNSPECIFIED MORPHOLOGIC CHANGES Status: Acute (2) Decompensated hepatic cirrhosis Code(s): K72.90 - HEPATIC FAILURE, UNSPECIFIED WITHOUT COMA; K74.60 - UNSPECIFIED CIRRHOSIS OF LIVER Status: Chronic (3) Pancytopenia Code(s): D61.818 - OTHER PANCYTOPENIA Status: Acute (4) CKD (chronic kidney disease) stage 5, GFR less than 15 ml/min Code(s): N18.5 - CHRONIC KIDNEY DISEASE, STAGE 5 Status: Acute - Plan waiting for insurance approval for REHAB appreciate Dr Vallecillo's input cont HD as needed cont steroids, etc
[2020-09-21 04:51] LABS: Anion Gap 15 mmol/L (10-20); BUN (Urea Nitrogen) 47 mg/dL (9.8-20.1); Calc. Creatinine Clearance 14 mL/min (70-130); Calcium 7.8 mg/dL (7.8-10.44); Carbon Dioxide 25 mmol/L (23-31); Chloride 100 mmol/L (98-107); Glucose 134 mg/dL (80-115); Potassium 4.5 mmol/L (3.5-5.1); Sodium 135 mmol/L (136-145)
[2020-09-21] MEDS: Polyethylene Glycol 3350 17 GM Packet PO SCH (08:40)
[2020-09-21] MEDS: Rifaximin 550 MG TAB PO SCH ×2 (08:41→21:05)
[2020-09-21] MEDS: Fluconazole 100 MG TAB PO SCH (08:41)
[2020-09-21] MEDS: Pantoprazole 40 MG GRANULES PACKET PO SCH (08:41)
[2020-09-21] MEDS: Midodrine HCl 5 MG TAB PO SCH ×3 (08:41→21:05)
[2020-09-21] MEDS: Ferrous Sulfate 325 MG TAB PO SCH (08:41)
[2020-09-21] MEDS: Folic Acid 1 MG TAB PO SCH (08:41)
[2020-09-21] MEDS: prednisoLONE 10 MG ODT TAB PO SCH (08:42)
[2020-09-21] MEDS ORDERED: Cepastat Lozenges 1 LOZ PO PRN (11:00)
--- NOTE | 2020-09-21 11:25 | PDOC.NEPPN ---
- Subjective Encounter Date: 09/21/20 Subjective: Seen. No new problem. - Objective Vital Signs & Weight: Vital Signs (12 hours) Temp Pulse Resp BP Pulse Ox 09/21/20 08:00 97.7 F 83 18 110/59 L 97 Weight Admit Weight 119 lb 3.2 oz Weight 119 lb 8 oz I&O: 09/20/20 09/21/20 09/22/20 06:59 06:59 06:59 Intake Total 1350 60 Balance 1350 60 Result Diagrams: 09/19/20 08:38 09/21/20 04:12 Nephrology ROS - Medication Medications: Active Medications Generic Name Dose Route Start Last Admin Trade Name Freq PRN Reason Stop Dose Admin Cholecalciferol 5,000 units 09/17/20 12:00 09/17/20 14:54 Cholecalciferol 1,000 Units (25 Mcg) Tab PO 5,000 units Q7D CHANO Administration Ferrous Sulfate 325 mg 09/18/20 09:00 09/21/20 08:41 Ferrous Sulfate 325 Mg Tab PO 325 mg DAILY CHANO Administration Fluconazole 200 mg 09/17/20 09:00 09/21/20 08:41 Fluconazole 100 Mg Tab PO 200 mg DAILY CHANO Administration Folic Acid 1 mg 09/17/20 09:00 09/21/20 08:41 Folic Acid 1 Mg Tab PO 1 mg DAILY CHANO Administration Lactulose 30 gm 09/17/20 09:00 09/21/20 08:42 Lactulose 20 Gm/30 Ml Udcup PO 30 gm BID CHANO Administration Midodrine 10 mg 09/17/20 09:00 09/21/20 08:41 Midodrine Hcl 5 Mg Tab PO 10 mg TID CHANO Administration Pantoprazole Sodium 40 mg 09/17/20 09:00 09/21/20 08:41 Pantoprazole 40 Mg Granules Packet PO 40 mg DAILY CHANO Administration Polyethylene Glycol 17 gm 09/18/20 09:00 09/21/20 08:40 Polyethylene Glycol 3350 17 Gm Packet PO 17 gm DAILY CHANO Administration Prednisolone 50 mg 09/20/20 09:00 09/21/20 08:42 Prednisolone 10 Mg Odt Tab PO 50 mg DAILY CHANO Administration Rifaximin 550 mg 09/17/20 21:00 09/21/20 08:41 Rifaximin 550 Mg Tab PO 550 mg BID CHANO Administration Trimethoprim/Sulfamethoxazole 0 tab 09/20/20 12:00 09/20/20 13:59 Sulfameth/Trimethoprim Ss 400-80mg Tab PO 1 tab TuThSa CHANO Administration - Exam General Appearance: awake alert Eye: anicteric sclera ENT: normocephalic atraumatic Neck: symmetric Respiratory: no wheezes, no ronchi Cardiovascular: RRR Gastrointestinal: soft, non-distended, normal bowel sounds Extremities: 1+ LE edema Neurological: CN's grossly intact Musculoskeletal: generalized weakness PSYCH: A&O x 3 Nephrology Results - Labs Result Diagrams: 09/19/20 08:38 09/21/20 04:12 Lab results: WBC 2.9 thou/uL (4.8-10.8) L 09/19/20 08:38 Hgb 8.2 g/dL (12.0-16.0) L 09/19/20 08:38 Hct 24.9 % (36.0-47.0) L 09/19/20 08:38 MCV 89.6 fL (78.0-98.0) 09/19/20 08:38 Plt Count 93 thou/uL (130-400) L 09/19/20 08:38 Neutrophils % 64.3 % (42.0-75.0) 09/19/20 08:38 Band Neuts % (Manual) 1 % (5-11) L 09/17/20 05:30 ESR Westergren Less than 1 mm/hr (Less than 30) 09/17/20 05:30 Sodium 135 mmol/L (136-145) L 09/21/20 04:12 Potassium 4.5 mmol/L (3.5-5.1) 09/21/20 04:12 Chloride 100 mmol/L (98-107) 09/21/20 04:12 Carbon Dioxide 25 mmol/L (23-31) 09/21/20 04:12 BUN 47 mg/dL (9.8-20.1) H 09/21/20 04:12 Creatinine 3.54 mg/dL (0.6-1.1) H 09/21/20 04:12 Glucose 134 mg/dL (80-115) H 09/21/20 04:12 Calcium 7.8 mg/dL (7.8-10.44) 09/21/20 04:12 Total Bilirubin 1.2 mg/dL (0.2-1.2) 09/20/20 05:39 AST 31 U/L (5-34) 09/20/20 05:39 ALT 32 U/L (8-55) 09/20/20 05:39 Alkaline Phosphatase 306 U/L (40-110) H 09/20/20 05:39 C-Reactive Protein 2.79 mg/dL (= or < 0.5) H 09/17/20 05:30 Serum Total Protein 5.0 g/dL (5.8-8.1) L 09/20/20 05:39 Albumin 2.9 g/dL (3.4-4.8) L 09/20/20 05:39 Urine Ketones Negative mg/dL (Negative) 09/17/20 18:30 Urine Blood 3+ (Negative) A 09/17/20 18:30 Urine Nitrite Negative (Negative) 09/17/20 18:30 Ur Leukocyte Esterase 75 Yesi/uL (Negative) A 09/17/20 18:30 Urine RBC 11-20 HPF (0-3) A 09/17/20 18:30 Urine WBC 11-20 HPF (0-3) A 09/17/20 18:30 Ur Squamous Epith Cells None Seen HPF (0-3) 09/17/20 18:30 Urine Bacteria 1+ HPF (None Seen) A 09/17/20 18:30 Sodium 135 mmol/L (136-145) L 09/21/20 04:12 Potassium 4.5 mmol/L (3.5-5.1) 09/21/20 04:12 Chloride 100 mmol/L (98-107) 09/21/20 04:12 Carbon Dioxide 25 mmol/L (23-31) 09/21/20 04:12 Anion Gap 15 mmol/L (10-20) 09/21/20 04:12 BUN 47 mg/dL (9.8-20.1) H 09/21/20 04:12 Creatinine 3.54 mg/dL (0.6-1.1) H 09/21/20 04:12 Glucose 134 mg/dL (80-115) H 09/21/20 04:12 Calcium 7.8 mg/dL (7.8-10.44) 09/21/20 04:12 Albumin 2.9 g/dL (3.4-4.8) L 09/20/20 05:39 Nephrology AP PN - Plan Acute renal failure requiring HD. Last HD on 09/20/20. Due Pauci immune GN. Still oliguric and requiring HD. 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 PCM Acute anemia Funguria: Assymptomatic Immunocompromised host PLan Continue prednisoone 50 mg orally Continue HD TTS as there is still no significant renal recovery For repeat Rituximab in 2 weeks. Continue fluconazole for assymptomatic funguria in immonocompromised host. Continue bactrim for PCP prophylaxis Follow renal function and H/H Start Nepro Can be discharged from Nephrology point of view back to Rehab.
--- NOTE | 2020-09-21 14:40 | DIS ---
DATE OF ADMISSION: 09/16/2020 DATE OF DISCHARGE: 09/21/2020 PRIMARY CARE PHYSICIAN: No primary care provider listed. DISCHARGE DISPOSITION: Discharged back to [facility]. FINAL DIAGNOSES: Glomerulonephritis, hepatic failure with encephalopathy, cirrhosis of the liver, acute on chronic renal failure, pancytopenia. DISCHARGE MEDICATIONS: 1. Diflucan 200 mg a day. 2. Protonix 40 mg a day. 3. Rituxan 1000 mg IV piggyback as directed. 4. Prednisolone 50 mg p.o. daily. 5. Ferrous sulfate 325 mg a day. 6. Folic acid 1 mg a day. 7. Lactulose 20 g p.o. b.i.d. 8. Midodrine 5 mg p.o. t.i.d. 9. Inderal 10 mg p.o. b.i.d. 10. Rifaximin 550 mg p.o. b.i.d. 11. Trazodone 25 mg p.o. p.r.n. ALLERGIES: CODEINE. DIET: Renal. CODE STATUS: Full. PENDING AT TIME OF DISCHARGE: Nothing. HOSPITAL COURSE: The patient was admitted to the [facility], with autoimmune decompensated cirrhosis, glomerulonephritis, on Saturday, , Saturday hemodialysis, was sent by Dr. Vallecillo for treatment of glomerulonephritis with high-dose steroids. She has had esophageal varices with banding, required paracentesis in the past. She has a history of ANCA vasculitis. She was seen in consultation on 09/17/[address] Vallecillo. She was treated with high-dose steroids, 1 g of Rituxan to be repeated in 2 weeks, steroid dose was 1 g methylprednisolone daily x5 days, she was continued on rifaximin, etc. After receiving the medicines, she was referred back to [facility]; however, her transition was delayed by requiring a new referral. Laboratories while she was in the hospital, 09/17/2020, white count 2.3, hemoglobin 7, platelet count 72,000. Subsequent on 09/18, white count was 2.9, hemoglobin 7.6. On 09/19, white count 2.9, hemoglobin 7.6. Her creatinine during hospital stay was 3.17, 3.18, 3.70, 4.70, 5.18, now 3.54. Urine output has been adequate. She was SARS negative. She has been discharged back to [facility]. Followup per rehab and Dr. Vallecillo, who will continue her Saturday, , Saturday dialysis as needed. Job ID: [id number] [id number]
[2020-09-21 20:45] VITALS: BP 110/60; TEMP 98.3
[2020-09-22] MEDS ORDERED: Sulfameth/Trimethoprim SS 400-80MG TAB PO SCH (14:15)
--- NOTE | 2020-09-23 01:38 | PQF ---
CLINICAL DOCUMENTATION CLARIFICATION FORM: Dear : Gigi Simmons Date / Time: 09/23/2020136 Please exercise your independent, professional judgment in responding to the clarification form. Clinical indicators are provided on the bottom of this form for your review In your clinical opinion based on clinical findings below, can you please further specify Encephalopathy if: Please check appropriate box(es): [ ] Acute Hepatic Encephalopathy [ ] Acute on Chronic Hepatic Encephalopathy [ ] Metabolic Encephalpathy [ ] Other diagnosis [ ] Unable to determine Physician Signature: Date/Time: For continuity of documentation, please document condition throughout progress notes and discharge summary. Thank You. 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
[2020-10-03] MEDS ORDERED: SODIUM CHLORIDE 0.9% IVPB SCH (06:00)
[2020-10-03] MEDS ORDERED: RITUXAN IVPB SCH (06:00)
== END 2020-09-21 21:25 | DRG 699 ==
LOC: T4-A 20:31 → ONC 09-17 20:13
PROVIDERS: ADMIT Student in an Organized Health Care Education/Training Program; ATTEND Internal Medicine
PROC: 3E0330M Introduction of Antineoplastic, Monoclonal Antibody, into Peripheral Vein, Percutaneous Approach (ICD-10-PCS; 2020-09-17)
PROC: 5A1D70Z Performance of Urinary Filtration, Intermittent, Less than 6 Hours Per Day (ICD-10-PCS; principal; 2020-09-20)
DX: N05.7 Unspecified nephritic syndrome with diffuse crescentic glomerulonephritis (principal); D61.818 Other pancytopenia; D62 Acute posthemorrhagic anemia; R18.8 Other ascites; E46 Unspecified protein-calorie malnutrition; B48.8 Other specified mycoses; M31.8 Other specified necrotizing vasculopathies; Z79.52 Long term (current) use of systemic steroids; N17.9 Acute kidney failure, unspecified; N18.5 Chronic kidney disease, stage 5; K74.69 Other cirrhosis of liver; K72.90 Hepatic failure, unspecified without coma; K75.4 Autoimmune hepatitis; Z99.2 Dependence on renal dialysis; Z87.891 Personal history of nicotine dependence; Z88.5 Allergy status to narcotic agent; Z68.23 Body mass index [BMI] 23.0-23.9, adult; Z79.899 Other long term (current) drug therapy
CPT/HCPCS: 36415; 80048; 80053; 81001; 82570; 84156; 85025; 85610; 85652; 85730; 86140; 86850; 86900; 86901; 87635; 90935; G0257; J1644; J2930; J7030; J7050; J7510; J9312; U0003; U0005

== ENCOUNTER 2020-10-05 09:09 | Day surgery (SDC) | payer OTHER ==
[~2020-10-05 09:09] MED LIST: Acetaminophen 500 MG TAB PO PRN; RITUXIMAB ABBS IVPB SCH; SODIUM CHLORIDE 0.9% IVPB SCH; diphenhydrAMINE 50 MG/ML VIAL IVP PRN
[2020-10-05] MEDS ORDERED: Sodium Chloride 0.9% 20 ML ONE (09:12)
[2020-10-05 09:23] VITALS: BP 115/62; TEMP 97
== END 2020-10-05 13:45 ==
LOC: ONC/OP 09:09
PROVIDERS: ATTEND Internal Medicine Nephrology
DX: N05.7 Unspecified nephritic syndrome with diffuse crescentic glomerulonephritis (principal); Z88.5 Allergy status to narcotic agent
CPT/HCPCS: 96375; 96413; 96415; J1200; J7030; Q5115

== ENCOUNTER 2020-10-11 14:42 | Inpatient (IN) | payer OTHER ==
[2020-10-11 16:58] LABS: #Lymphocytes 0.8 thou/uL (1.20-3.40); #Monocytes 0.6 thou/uL (0.11-0.59); #Neutrophils 9.3 thou/uL (1.40-6.50); %Basophils 0.4 % (0.0-1.0); %Eosinophils 0.2 % (0.0-10.0); %Lymphocytes 7.3 % (21.0-51.0); %Monocytes 5.2 % (0.0-10.0); %Neutrophils 86.9 % (42.0-75.0); Hemoglobin 8.9 g/dL (12.0-16.0); Mean Corpuscular HGB CONC 31.4 g/dL (32.0-36.0); Mean Corpuscular Hemoglobin 31.2 pg (27.0-31.0); Mean Corpuscular Volume 99.4 fL (78.0-98.0); Mean Platelet Volume 8.4 fL (7.4-10.4); Platelet Count 176 thou/uL (130-400); RBC Distribution Width 17.5 % (11.5-14.5); Red Blood Cell (RBC) Count 2.86 mill/uL (4.20-5.40); White Blood Cell (WBC) Count 10.7 thou/uL (4.8-10.8)
[2020-10-11 17:25] LABS: ALT (SGPT) 57 U/L (8-55); AST (SGOT) 39 U/L (5-34); Albumin 3.5 g/dL (3.4-4.8); Alkaline Phosphatase 281 U/L (40-110); Anion Gap 20 mmol/L (10-20); BUN (Urea Nitrogen) 65 mg/dL (9.8-20.1); Bilirubin, Total 0.9 mg/dL (0.2-1.2); Calc. Creatinine Clearance 0 mL/min (70-130); Calcium 8.6 mg/dL (7.8-10.44); Carbon Dioxide 21 mmol/L (23-31); Chloride 103 mmol/L (98-107); Globulin 2.6 g/dL (2.4-3.5); Glucose 129 mg/dL (80-115); Potassium 4.5 mmol/L (3.5-5.1); Protein, Total 6.1 g/dL (5.8-8.1); Sodium 139 mmol/L (136-145)
[2020-10-11] MEDS ORDERED: Triple Antibiotic Oint 1 GM Packet ONE (18:36)
[2020-10-11 18:50] LABS: CKMB 2.6 ng/mL (0-6.6)
[2020-10-11 20:46] LABS: Bilirubin Negative (Negative); Blood, Urine Moderate (Negative); Glucose, Urine (Dipstick) Negative (Negative); Ketone, Urine Negative (Negative); Leukocyte Large (Negative); Nitrite Negative (Negative); Protein, Urine (Dipstick) 100 mg/dL (Neg-Trace); Urobilinogen 0.2 mg/dL (Less than 2); pH, Urine 6.5 (5.0-9.0)
[2020-10-11 20:58] LABS: Clarity Turbid (Clear)
[2020-10-11 21:00] LABS: Bacteria/HPF 4+ HPF (None Seen); Squamous Epithelial 0-3 HPF (0-3); WBC/HPF Greater than 50 HPF (0-3)
[2020-10-11] MEDS ORDERED: Acetaminophen 650 MG Suppository PR PRN (21:17)
[2020-10-11] MEDS ORDERED: Acetaminophen 325 MG TAB PO PRN (21:17)
[2020-10-11 21:18] LABS: Troponin I 0.081 ng/mL (< 0.028)
[2020-10-11 21:49] LABS: Lactic Acid 2.2 mmol/L (0.5-2.2)
[2020-10-11] MEDS ORDERED: cefTRIAXone\\ROCEPHIN 2 GM VIAL ONE (21:50)
[2020-10-11] MEDS ORDERED: Aspirin Chewable 81 MG TAB ONE (21:50)
[2020-10-12 00:22] LABS: Actual Bicarbonate (HCO3a) 25.2 mEq/L (22-28); Base Excess (BEa) 1.8 mEq/L (-2.0 to +3.0); CO2 Tension 33.8 mmHg (35.0-45.0); Hemoglobin (Hb) 7.5 g/dL (12.0-16.0); O2 Tension (PaO2), arterial 101.9 mmHg (> 80.0); Potassium - ABG Lab 4.01 mmol/L (3.70-5.30); pH, Arterial 7.49 (7.35-7.45)
[2020-10-12 00:24] LABS: Puncture Site LBA
[2020-10-12 00:32] LABS: Troponin I 0.061 ng/mL (< 0.028)
[2020-10-12] MEDS ORDERED: Heparin 1,000 UNITS/ML VIAL FS PRN (01:27)
[2020-10-12 04:17] LABS: Actual Bicarbonate (HCO3v) 26 mEq/L (22-28); Base Excess 1.7 mEq/L (-2.0 to +3.0); Calcium, Ionized (venous) 1.14 mmol/L (1.16-1.32); Chloride (VBG) 105 mmol/L (98-106); Hemoglobin (Hb) 7.8 g/dL (11.7-16.0); Potassium (VBG) 4.02 mmol/L (3.70-5.30); Sodium 138.5 mmol/L (133-146); pH (venous) 7.47 (7.32-7.43)
[2020-10-12 04:43] LABS: Phosphorus 3.4 mg/dL (2.3-4.7)
[2020-10-12 04:49] LABS: ALT (SGPT) 57 U/L (8-55); AST (SGOT) 38 U/L (5-34); Albumin 3.3 g/dL (3.4-4.8); Alkaline Phosphatase 266 U/L (40-110); Anion Gap 17 mmol/L (10-20); BUN (Urea Nitrogen) 68 mg/dL (9.8-20.1); Bilirubin, Total 0.7 mg/dL (0.2-1.2); Calc. Creatinine Clearance 14 mL/min (70-130); Calcium 8.6 mg/dL (7.8-10.44); Carbon Dioxide 22 mmol/L (23-31); Chloride 104 mmol/L (98-107); Globulin 2.4 g/dL (2.4-3.5); Glucose 91 mg/dL (80-115); Magnesium 1.9 mg/dL (1.6-2.6); Potassium 4.1 mmol/L (3.5-5.1); Protein, Total 5.7 g/dL (5.8-8.1); Sodium 139 mmol/L (136-145)
[2020-10-12 05:45] LABS: SARS-CoV-2 PCR by NAA Not Detected (NotDetected)
[2020-10-12 06:40] LABS: #Eosinphils 0.1 thou/uL (0.0-0.7); #Lymphocytes 0.7 thou/uL (1.20-3.40); #Monocytes 0.2 thou/uL (0.11-0.59); #Neutrophils 4.5 thou/uL (1.40-6.50); %Basophils 0.1 % (0.0-1.0); %Eosinophils 1.2 % (0.0-10.0); %Lymphocytes 12.3 % (21.0-51.0); %Monocytes 3.8 % (0.0-10.0); %Neutrophils 82.7 % (42.0-75.0); Anisocytosis SLIGHT = 6-15 cells (100X) (0-5/hpf); Hemoglobin 8.2 g/dL (12.0-16.0); MDiff Complete? YES; Mean Corpuscular HGB CONC 32.2 g/dL (32.0-36.0); Mean Corpuscular Hemoglobin 32.1 pg (27.0-31.0); Mean Corpuscular Volume 99.7 fL (78.0-98.0); Mean Platelet Volume 8.6 fL (7.4-10.4); Platelet Count 97 thou/uL (130-400); Platelet Morphology Comment Appears Decreased; RBC Distribution Width 16.9 % (11.5-14.5); Red Blood Cell (RBC) Count 2.56 mill/uL (4.20-5.40); White Blood Cell (WBC) Count 5.5 thou/uL (4.8-10.8)
[2020-10-12] MEDS ORDERED: predniSONE 20 MG TAB PO SCH (10:30)
[2020-10-12] MEDS ORDERED: Heparin 10,000 UNITS/ 10 ML VIAL ONE (10:41)
[2020-10-12 13:08] VITALS: BMI 22.8
[2020-10-12 17:23] LABS: Anion Gap 15 mmol/L (10-20); BUN (Urea Nitrogen) 29 mg/dL (9.8-20.1); Calc. Creatinine Clearance 26 mL/min (70-130); Calcium 7.9 mg/dL (7.8-10.44); Carbon Dioxide 25 mmol/L (23-31); Chloride 103 mmol/L (98-107); Glucose 138 mg/dL (80-115); Magnesium 1.7 mg/dL (1.6-2.6); Potassium 4.1 mmol/L (3.5-5.1); Sodium 139 mmol/L (136-145)
[2020-10-13] MEDS ORDERED: Spironolactone 100 MG TAB PO SCH (07:45)
[2020-10-13] MEDS: Spironolactone 100 MG TAB PO SCH (08:18)
[2020-10-13] MEDS: Torsemide 20 MG TAB PO SCH (08:18)
[2020-10-13] MEDS: predniSONE 20 MG TAB PO SCH (08:18)
[2020-10-13] MEDS ORDERED: Heparin 10,000 UNITS/ 10 ML VIAL ONE (08:33)
[2020-10-13 09:17] LABS: #Basophils 0.1 thou/uL (0.0-0.2); #Eosinphils 0.1 thou/uL (0.0-0.7); #Lymphocytes 1.2 thou/uL (1.20-3.40); #Monocytes 0.5 thou/uL (0.11-0.59); #Neutrophils 5.5 thou/uL (1.40-6.50); %Basophils 0.9 % (0.0-1.0); %Eosinophils 1.5 % (0.0-10.0); %Lymphocytes 16.7 % (21.0-51.0); %Monocytes 6.2 % (0.0-10.0); %Neutrophils 74.8 % (42.0-75.0); Hemoglobin 9.1 g/dL (12.0-16.0); Mean Corpuscular HGB CONC 33.4 g/dL (32.0-36.0); Mean Corpuscular Hemoglobin 33.6 pg (27.0-31.0); Mean Platelet Volume 8.5 fL (7.4-10.4); Platelet Count 116 thou/uL (130-400); RBC Distribution Width 16.6 % (11.5-14.5); Red Blood Cell (RBC) Count 2.71 mill/uL (4.20-5.40); White Blood Cell (WBC) Count 7.3 thou/uL (4.8-10.8)
[2020-10-13] MEDS ORDERED: Carvedilol 6.25 MG TAB PO SCH (17:00)
[2020-10-13] MEDS: Meropenem 500 MG in Sodium Chloride 0.9% 100 ML IVPB SCH (17:28)
[2020-10-13] MEDS: Metoprolol Tartrate 25 MG TAB PO SCH (20:04)
[2020-10-14] MEDS: predniSONE 20 MG TAB PO SCH (09:27)
[2020-10-14] MEDS: Spironolactone 100 MG TAB PO SCH (09:28)
[2020-10-14] MEDS: Metoprolol Tartrate 25 MG TAB PO SCH ×2 (09:28→20:50)
[2020-10-14] MEDS: Torsemide 20 MG TAB PO SCH (09:28)
[2020-10-14] MEDS: Meropenem 500 MG in Sodium Chloride 0.9% 100 ML IVPB SCH (18:20)
[2020-10-15 04:52] LABS: Hemoglobin 7.9 g/dL (12.0-16.0); Mean Corpuscular HGB CONC 33.6 g/dL (32.0-36.0); Mean Corpuscular Hemoglobin 33.5 pg (27.0-31.0); Mean Corpuscular Volume 99.6 fL (78.0-98.0); Mean Platelet Volume 8.9 fL (7.4-10.4); Platelet Count 97 thou/uL (130-400); Red Blood Cell (RBC) Count 2.37 mill/uL (4.20-5.40); White Blood Cell (WBC) Count 6.7 thou/uL (4.8-10.8)
[2020-10-15 05:11] LABS: Albumin 3.1 g/dL (3.4-4.8); Anion Gap 17 mmol/L (10-20); BUN (Urea Nitrogen) 56 mg/dL (9.8-20.1); BUN/Creatinine Ratio 18.67; Calc. Creatinine Clearance 15 mL/min (70-130); Calcium 8.5 mg/dL (7.8-10.44); Carbon Dioxide 22 mmol/L (23-31); Chloride 105 mmol/L (98-107); Glucose 92 mg/dL (80-115); Phosphorus 3.7 mg/dL (2.3-4.7); Sodium 140 mmol/L (136-145)
[2020-10-15] MEDS ORDERED: Epoetin (ESRD) 20,000 UNITS/ML SC SCH (06:00)
[2020-10-15] MEDS ORDERED: EPOETIN ALFA-EPBX (ESRD) 3,000 UNIT/ML VIAL SC SCH (09:00)
[2020-10-15] MEDS ORDERED: EPOETIN ALFA-EPBX (ESRD) 2,000 UNIT/ML VIAL SC SCH (09:00)
[2020-10-15] MEDS ORDERED: Heparin 10,000 UNITS/ 10 ML VIAL ONE (11:10)
[2020-10-15] MEDS: Metoprolol Tartrate 25 MG TAB PO SCH ×2 (14:27→21:41)
[2020-10-15] MEDS: Torsemide 20 MG TAB PO SCH (14:27)
[2020-10-15] MEDS: Spironolactone 100 MG TAB PO SCH (14:27)
[2020-10-15] MEDS: predniSONE 20 MG TAB PO SCH (14:28)
[2020-10-15] MEDS: Ferrous Sulfate 325 MG TAB PO SCH ×2 (14:29→17:18)
[2020-10-15] MEDS: Meropenem 500 MG in Sodium Chloride 0.9% 100 ML IVPB SCH (17:18)
[2020-10-16] MEDS: Ferrous Sulfate 325 MG TAB PO SCH ×2 (09:00→17:18)
[2020-10-16] MEDS: Torsemide 20 MG TAB PO SCH (09:00)
[2020-10-16] MEDS: Metoprolol Tartrate 25 MG TAB PO SCH ×3 (09:00→21:53)
[2020-10-16] MEDS: predniSONE 20 MG TAB PO SCH (09:00)
[2020-10-16] MEDS: Spironolactone 100 MG TAB PO SCH (09:00)
[2020-10-16] MEDS: Meropenem 500 MG in Sodium Chloride 0.9% 100 ML IVPB SCH (17:18)
[2020-10-17 05:21] LABS: Albumin 3.1 g/dL (3.4-4.8); Anion Gap 14 mmol/L (10-20); BUN (Urea Nitrogen) 51 mg/dL (9.8-20.1); BUN/Creatinine Ratio 18.02; Calc. Creatinine Clearance 16 mL/min (70-130); Calcium 8.6 mg/dL (7.8-10.44); Carbon Dioxide 25 mmol/L (23-31); Chloride 104 mmol/L (98-107); Glucose 90 mg/dL (80-115); Phosphorus 3.4 mg/dL (2.3-4.7); Sodium 139 mmol/L (136-145)
[2020-10-17] MEDS: Ferrous Sulfate 325 MG TAB PO SCH (07:56)
[2020-10-17] MEDS: Metoprolol Tartrate 25 MG TAB PO SCH ×2 (07:56→15:09)
[2020-10-17] MEDS: predniSONE 20 MG TAB PO SCH (07:57)
[2020-10-17] MEDS: Torsemide 20 MG TAB PO SCH (07:58)
[2020-10-17] MEDS: Spironolactone 100 MG TAB PO SCH (07:58)
[2020-10-17] MEDS ORDERED: Megestrol Acetate 800 MG/20 ML UDCUP PO SCH (11:30)
[2020-10-17 12:00] VITALS: TEMP 98
[2020-10-17 15:59] VITALS: BP 115/61
[2020-10-18] MEDS ORDERED: Megestrol Acetate 800 MG/20 ML UDCUP PO SCH (09:00)
== END 2020-10-17 17:12 | DRG 545 ==
LOC: ERS 14:42 → 2NO 18:40
PROVIDERS: ADMIT Student in an Organized Health Care Education/Training Program; ATTEND Internal Medicine
PROC: 5A1D70Z Performance of Urinary Filtration, Intermittent, Less than 6 Hours Per Day (ICD-10-PCS; principal; 2020-10-11)
DX: I77.6 Arteritis, unspecified (principal); N01.9 Rapidly progressive nephritic syndrome with unspecified morphologic changes; L89.153 Pressure ulcer of sacral region, stage 3; N18.6 End stage renal disease; E87.2 Acidosis; N39.0 Urinary tract infection, site not specified; D61.818 Other pancytopenia; I47.1 Supraventricular tachycardia; Z16.24 Resistance to multiple antibiotics; I85.00 Esophageal varices without bleeding; E46 Unspecified protein-calorie malnutrition; N17.9 Acute kidney failure, unspecified; I77.89 Other specified disorders of arteries and arterioles; K74.60 Unspecified cirrhosis of liver; D63.1 Anemia in chronic kidney disease; I48.91 Unspecified atrial fibrillation; I95.9 Hypotension, unspecified; B96.5 Pseudomonas (aeruginosa) (mallei) (pseudomallei) as the cause of diseases classified elsewhere; Z99.3 Dependence on wheelchair; Z99.2 Dependence on renal dialysis; Z88.5 Allergy status to narcotic agent; Z68.21 Body mass index [BMI] 21.0-21.9, adult; R53.81 Other malaise; R53.1 Weakness
CPT/HCPCS: 36415; 36600; 51701; 71045; 71250; 80053; 80069; 81003; 81015; 82140; 82553; 82805; 83605; 83735; 83880; 84100; 84484; 85025; 85027; 86140; 87040; 87077; 87086; 87186; 87635; 90935; 93005; 93010; 93306; 96374; G0257; J0696; J1644; J2185; J3490; J7512; Q5105; U0003; U0005

== ENCOUNTER 2020-10-23 01:39 | Inpatient (IN) | payer OTHER ==
[2020-10-23] MEDS ORDERED: Norepinephrine 8 MG/0.9% NS 250 ML ONE (03:37)
[2020-10-23 03:54] LABS: INR-International Normal Ratio 1.3; PTT 27.3 sec (22.9-36.1); Prothrombin Time 15.9 sec (12.0-14.7)
[2020-10-23 04:02] LABS: Hemoglobin 6.9 g/dL (12.0-16.0); Mean Corpuscular Hemoglobin 33.7 pg (27.0-31.0); Mean Corpuscular Volume 96.5 fL (78.0-98.0); RBC Distribution Width 14.1 % (11.5-14.5); Red Blood Cell (RBC) Count 2.06 mill/uL (4.20-5.40)
[2020-10-23 04:03] LABS: ALT (SGPT) 39 U/L (8-55); AST (SGOT) 41 U/L (5-34); Albumin 2.5 g/dL (3.4-4.8); Alkaline Phosphatase 228 U/L (40-110); Anion Gap 15 mmol/L (10-20); BUN (Urea Nitrogen) 68 mg/dL (9.8-20.1); Bilirubin, Total 0.6 mg/dL (0.2-1.2); Calc. Creatinine Clearance 0 mL/min (70-130); Calcium 7.8 mg/dL (7.8-10.44); Carbon Dioxide 26 mmol/L (23-31); Chloride 102 mmol/L (98-107); Globulin 1.8 g/dL (2.4-3.5); Glucose 113 mg/dL (80-115); Potassium 3.4 mmol/L (3.5-5.1); Protein, Total 4.3 g/dL (5.8-8.1); Sodium 140 mmol/L (136-145)
[2020-10-23 04:42] LABS: Band 13 % (5-11); Lymphocytes 19 % (21-51); MDiff Complete? YES; Mean Platelet Volume 9.6 fL (7.4-10.4); Neutrophil 68 % (42-75); Platelet Count 105 thou/uL (130-400); Platelet Morphology Comment Appears Decreased; White Blood Cell (WBC) Count 10.6 thou/uL (4.8-10.8)
[2020-10-23] MEDS ORDERED: Octreotide Acetate 1,250 MCG in Sodium Chloride 0.9% 250 ML 250 ML IVPB SCH (05:30)
[2020-10-23] MEDS ORDERED: Octreotide Acetate 50 MCG/ML AMP SLOW IVP SCH (06:00)
[2020-10-23] MEDS: Pantoprazole 80 MG, Admixture Fee 1 EACH in Sodium Chloride 0.9% 100 ML IVPB SCH ×2 (06:41→15:08)
[2020-10-23] MEDS ORDERED: Octreotide Acetate 50 MCG/ML AMP ONE (06:45)
[2020-10-23 07:26] LABS: Hemoglobin 8.2 g/dL (12.0-16.0)
[2020-10-23] MEDS ORDERED: Norepinephrine 8 MG/0.9% NS 250 ML IVPB SCH (08:45)
[2020-10-23] MEDS: Hydrocortisone Sod Succ/PF 100 mg/2 ml Vial IVP SCH ×2 (11:08→18:10)
[2020-10-23 11:48] LABS: Hemoglobin 7.7 g/dL (12.0-16.0)
[2020-10-23 11:50] LABS: Platelet Count 93 thou/uL (130-400)
[2020-10-23 11:59] LABS: SARS-CoV-2 NAA Rapid Test Presumptive Positive (NotDetected)
[2020-10-23] MEDS ORDERED: PROPOFOL 200 MG/20 ML VIAL ONE (12:00)
[2020-10-23] MEDS ORDERED: Rocuronium Bromide 10 MG/ML (10ML VIAL) ONE (12:00)
[2020-10-23] MEDS ORDERED: Lidocaine 1% PF 5 ML VIAL ONE (12:00)
[2020-10-23] MEDS ORDERED: PHENYLEPHRINE-NS 100 MCG/ML 10 ML SYRINGE ONE (12:00)
[2020-10-23] MEDS ORDERED: Succinylcholine 200 MG/10 ml SYRINGE FS ONE (12:00)
[2020-10-23] MEDS ORDERED: Propofol 1,000 MG/100 ML VIAL IV ONE (12:42)
[2020-10-23] MEDS: Fentanyl 100 MCG/2 ML VIAL SLOW IVP PRN ×2 (12:58→23:04)
[2020-10-23 13:48] LABS: Actual Bicarbonate (HCO3a) 23.2 mEq/L (22-28); Base Excess (BEa) -3.2 mEq/L (-2.0 to +3.0); CO2 Tension 48.7 mmHg (35.0-45.0); Calcium, Ionized (arterial) 1.14 mmol/L (1.12-1.30); Carboxyhemoglobin (COHb) 1.4 gm% (0.0-3.0); Hemoglobin (Hb) 8.4 g/dL (12.0-16.0); O2 Tension (PaO2), arterial 79.2 mmHg (> 80.0)
[2020-10-23 13:50] LABS: ALV-art Gradient 216.425 mmHg (0-20); Puncture Site LRA
[2020-10-23 16:13] LABS: SARS-CoV-2 PCR by NAA DETECTED (NotDetected)
[2020-10-23 17:56] LABS: Hemoglobin 7.8 g/dL (12.0-16.0)
[2020-10-23 20:05] LABS: Hemoglobin 7.4 g/dL (12.0-16.0)
[2020-10-23] MEDS: cefTRIAXone\\ROCEPHIN 1 GM in Sodium Chloride 0.9% 100 ML IVPB SCH (23:07)
[2020-10-24] MEDS: Hydrocortisone Sod Succ/PF 100 mg/2 ml Vial IVP SCH ×3 (01:42→18:19)
[2020-10-24] MEDS: Pantoprazole 80 MG, Admixture Fee 1 EACH in Sodium Chloride 0.9% 100 ML IVPB SCH (01:42)
[2020-10-24 03:44] LABS: Hemoglobin 7.4 g/dL (12.0-16.0); Mean Corpuscular HGB CONC 35.3 g/dL (32.0-36.0); Mean Corpuscular Volume 93.3 fL (78.0-98.0); Mean Platelet Volume 9.3 fL (7.4-10.4); Platelet Count 152 thou/uL (130-400); RBC Distribution Width 15.8 % (11.5-14.5); Red Blood Cell (RBC) Count 2.26 mill/uL (4.20-5.40); White Blood Cell (WBC) Count 14.4 thou/uL (4.8-10.8)
[2020-10-24 03:45] LABS: Anion Gap 21 mmol/L (10-20); BUN (Urea Nitrogen) 81 mg/dL (9.8-20.1); Calc. Creatinine Clearance 23 mL/min (70-130); Carbon Dioxide 20 mmol/L (23-31); Chloride 103 mmol/L (98-107); Glucose 150 mg/dL (80-115); Potassium 3.6 mmol/L (3.5-5.1); Sodium 140 mmol/L (136-145)
[2020-10-24 04:01] LABS: Band 9 % (5-11); Lymphocytes 5 % (21-51); MDiff Complete? YES; Monocytes 6 % (0-10); Neutrophil 80 % (42-75)
[2020-10-24] MEDS ORDERED: Norepinephrine 8 MG/0.9% NS 250 ML ONE (05:20)
[2020-10-24 08:20] LABS: Actual Bicarbonate (HCO3a) 19.3 mEq/L (22-28); Base Excess (BEa) -2.4 mEq/L (-2.0 to +3.0); Calcium, Ionized (arterial) 1.09 mmol/L (1.12-1.30); Carboxyhemoglobin (COHb) 1.1 gm% (0.0-3.0); O2 Tension (PaO2), arterial 150.1 mmHg (> 80.0); Potassium - ABG Lab 3.58 mmol/L (3.70-5.30)
[2020-10-24 08:28] LABS: pH, Arterial 7.56 (7.35-7.45)
[2020-10-24 08:29] LABS: CO2 Tension 21.9 mmHg (35.0-45.0); Puncture Site RBA
[2020-10-24 08:30] LABS: ALV-art Gradient 107.725 mmHg (0-20)
[2020-10-24] MEDS ORDERED: FLU VACC QS2020-21(6MOS UP)/PF 60 MCG/0.5 ML SYRINGE IM ONE (09:00)
[2020-10-24] MEDS ORDERED: Prevnar 13-Val Conj/PF 0.5 ML SYRINGE IM ONE (09:00)
[2020-10-24] MEDS: Octreotide Acetate 1,250 MCG in Sodium Chloride 0.9% 250 ML 250 ML IVPB SCH (12:41)
[2020-10-24] MEDS: Nadolol 40 MG TAB PO SCH (21:06)
[2020-10-24] MEDS: cefTRIAXone\\ROCEPHIN 1 GM in Sodium Chloride 0.9% 100 ML IVPB SCH (23:22)
[2020-10-25] MEDS: Hydrocortisone Sod Succ/PF 100 mg/2 ml Vial IVP SCH ×3 (02:38→17:43)
[2020-10-25 03:34] LABS: Anion Gap 18 mmol/L (10-20); BUN (Urea Nitrogen) 89 mg/dL (9.8-20.1); CRP (Inflammatory) 1.72 mg/dL (= or < 0.5); Calc. Creatinine Clearance 21 mL/min (70-130); Calcium 7.6 mg/dL (7.8-10.44); Carbon Dioxide 21 mmol/L (23-31); Chloride 107 mmol/L (98-107); Glucose 123 mg/dL (80-115); Potassium 3.6 mmol/L (3.5-5.1); Sodium 142 mmol/L (136-145)
[2020-10-25 06:09] LABS: Band 11 % (5-11); Hemoglobin 7.5 g/dL (12.0-16.0); Lymphocytes 6 % (21-51); MDiff Complete? YES; Mean Corpuscular HGB CONC 34.5 g/dL (32.0-36.0); Mean Corpuscular Hemoglobin 31.6 pg (27.0-31.0); Mean Corpuscular Volume 91.8 fL (78.0-98.0); Mean Platelet Volume 9.7 fL (7.4-10.4); Monocytes 6 % (0-10); Neutrophil 77 % (42-75); Platelet Count 72 thou/uL (130-400); Platelet Morphology Comment Appears Decreased; RBC Distribution Width 16.5 % (11.5-14.5); Red Blood Cell (RBC) Count 2.38 mill/uL (4.20-5.40); White Blood Cell (WBC) Count 4.9 thou/uL (4.8-10.8)
[2020-10-25] MEDS: Zinc Sulfate 220 MG CAP PO SCH (07:26)
[2020-10-25] MEDS: Pantoprazole 40 MG VIAL IVP SCH (07:26)
[2020-10-25] MEDS: Ascorbic Acid 500 mg Chewable Tablet PO SCH ×2 (07:26→20:47)
[2020-10-25] MEDS: Thiamine 100 MG TAB PO SCH (07:26)
[2020-10-25] MEDS ORDERED: predniSONE 20 MG TAB PO SCH (11:45)
[2020-10-25] MEDS ORDERED: Heparin 10,000 UNITS/ 10 ML VIAL ONE (13:06)
[2020-10-25] MEDS: Octreotide Acetate 1,250 MCG in Sodium Chloride 0.9% 250 ML 250 ML IVPB SCH (13:38)
[2020-10-25] MEDS ORDERED: Albumin 5% 250 ML ONE (17:18)
[2020-10-25] MEDS ORDERED: Sodium Chloride 0.9% (PF) 10 ML VIAL FS PRN (17:30)
[2020-10-25] MEDS ORDERED: Albumin 25% 25 GM/100 ML BOT IVPB SCH (17:30)
[2020-10-25] MEDS: Cholecalciferol 1,000 UNITS (25 MCG) TAB PO SCH (20:47)
[2020-10-25] MEDS: Nadolol 40 MG TAB PO SCH (21:54)
[2020-10-25] MEDS: cefTRIAXone\\ROCEPHIN 1 GM in Sodium Chloride 0.9% 100 ML IVPB SCH (23:14)
[2020-10-26] MEDS: Hydrocortisone Sod Succ/PF 100 mg/2 ml Vial IVP SCH ×3 (02:48→16:38)
[2020-10-26 04:08] LABS: Anion Gap 18 mmol/L (10-20); BUN (Urea Nitrogen) 43 mg/dL (9.8-20.1); Calc. Creatinine Clearance 33 mL/min (70-130); Calcium 7.6 mg/dL (7.8-10.44); Carbon Dioxide 23 mmol/L (23-31); Chloride 104 mmol/L (98-107); Glucose 110 mg/dL (80-115); Potassium 3.5 mmol/L (3.5-5.1); Sodium 141 mmol/L (136-145)
[2020-10-26 04:27] LABS: Band 15 % (5-11); Hemoglobin 7.5 g/dL (12.0-16.0); Lymphocytes 12 % (21-51); MDiff Complete? YES; Mean Corpuscular HGB CONC 35.3 g/dL (32.0-36.0); Mean Corpuscular Hemoglobin 32.8 pg (27.0-31.0); Mean Corpuscular Volume 93.1 fL (78.0-98.0); Mean Platelet Volume 9.4 fL (7.4-10.4); Monocytes 3 % (0-10); Neutrophil 70 % (42-75); Platelet Count 70 thou/uL (130-400); Platelet Morphology Comment Appears Decreased; RBC Distribution Width 16.1 % (11.5-14.5); Red Blood Cell (RBC) Count 2.27 mill/uL (4.20-5.40); White Blood Cell (WBC) Count 4.7 thou/uL (4.8-10.8)
[2020-10-26] MEDS: Zinc Sulfate 220 MG CAP PO SCH (08:18)
[2020-10-26] MEDS: Thiamine 100 MG TAB PO SCH (08:18)
[2020-10-26] MEDS: predniSONE 20 MG TAB PO SCH (08:18)
[2020-10-26] MEDS: Ascorbic Acid 500 mg Chewable Tablet PO SCH ×2 (08:18→22:46)
[2020-10-26] MEDS: Pantoprazole 40 MG VIAL IVP SCH (08:20)
[2020-10-26] MEDS ORDERED: Epoetin (ESRD) 20,000 UNITS/ML SC SCH (09:00)
[2020-10-26] MEDS ORDERED: EPOETIN ALFA-EPBX (ESRD) 2,000 UNIT/ML VIAL SC SCH (09:00)
[2020-10-26] MEDS ORDERED: Spironolactone 100 MG TAB PO SCH (09:15)
[2020-10-26] MEDS: EPOETIN ALFA-EPBX (ESRD) 3,000 UNIT/ML VIAL SC SCH (09:21)
[2020-10-26] MEDS: Sulfameth/Trimethoprim SS 400-80MG TAB PO SCH (10:03)
[2020-10-26 11:46] LABS: Iron 23 ug/dL (50-170); Iron Binding Capacity, Total 124 mcg/dL (265-497)
[2020-10-26] MEDS: Ferrous Sulfate 325 MG TAB PO SCH (16:38)
[2020-10-26] MEDS: Cholecalciferol 1,000 UNITS (25 MCG) TAB PO SCH (22:46)
[2020-10-26] MEDS: cefTRIAXone\\ROCEPHIN 1 GM in Sodium Chloride 0.9% 100 ML IVPB SCH (22:47)
[2020-10-26] MEDS: Nadolol 40 MG TAB PO SCH (22:47)
[2020-10-27] MEDS: Hydrocortisone Sod Succ/PF 100 mg/2 ml Vial IVP SCH (01:21)
[2020-10-27 05:31] LABS: Hemoglobin 9.1 g/dL (12.0-16.0); Mean Corpuscular Hemoglobin 31.4 pg (27.0-31.0); Mean Corpuscular Volume 95.2 fL (78.0-98.0); Mean Platelet Volume 9.4 fL (7.4-10.4); Platelet Count 89 thou/uL (130-400); RBC Distribution Width 16.5 % (11.5-14.5)
[2020-10-27 05:33] LABS: Anion Gap 16 mmol/L (10-20); BUN (Urea Nitrogen) 51 mg/dL (9.8-20.1); Calc. Creatinine Clearance 25 mL/min (70-130); Calcium 7.7 mg/dL (7.8-10.44); Carbon Dioxide 22 mmol/L (23-31); Chloride 106 mmol/L (98-107); Glucose 130 mg/dL (80-115); Potassium 3.5 mmol/L (3.5-5.1); Sodium 140 mmol/L (136-145)
[2020-10-27 05:48] LABS: Band 18 % (5-11); Lymphocytes 4 % (21-51); MDiff Complete? YES; Monocytes 9 % (0-10); Myelocyte 2 % (0-0); Neutrophil 67 % (42-75); Platelet Morphology Comment Appears Decreased
[2020-10-27] MEDS ORDERED: Ivermectin 3 MG TAB PO SCH (07:31)
[2020-10-27] MEDS: Albumin 25% 25 GM/100 ML BOT IVPB PRN ×2 (09:46→09:47)
[2020-10-27] MEDS ORDERED: Heparin 10,000 UNITS/ 10 ML VIAL ONE (09:59)
[2020-10-27] MEDS: Sulfameth/Trimethoprim SS 400-80MG TAB PO SCH (10:06)
[2020-10-27] MEDS: predniSONE 20 MG TAB PO SCH (10:07)
[2020-10-27] MEDS: Ferrous Sulfate 325 MG TAB PO SCH ×2 (10:07→17:40)
[2020-10-27] MEDS: Spironolactone 100 MG TAB PO SCH ×2 (10:08→12:39)
[2020-10-27] MEDS: Ascorbic Acid 500 mg Chewable Tablet PO SCH ×2 (10:08→20:43)
[2020-10-27] MEDS: Pantoprazole 40 MG VIAL IVP SCH (10:08)
[2020-10-27] MEDS: Zinc Sulfate 220 MG CAP PO SCH (10:09)
[2020-10-27] MEDS: Thiamine 100 MG TAB PO SCH (10:11)
[2020-10-27] MEDS ORDERED: Benzonatate 100 MG CAP PO PRN (11:29)
[2020-10-27] MEDS ORDERED: Guaifenesin DM 100-10/5 ML UDCUP PO SCH (11:30)
[2020-10-27] MEDS ORDERED: Guaifenesin DM 100-10/5 ML UDCUP PO PRN (11:30)
[2020-10-27] MEDS: Benzonatate 100 MG CAP PO SCH ×2 (17:40→20:44)
[2020-10-27] MEDS: Nadolol 40 MG TAB PO SCH (20:43)
[2020-10-27] MEDS: Cholecalciferol 1,000 UNITS (25 MCG) TAB PO SCH (20:43)
[2020-10-27 22:20] LABS: Lactic Acid 0.9 mmol/L (0.5-2.2)
[2020-10-27 22:24] LABS: Anion Gap 15 mmol/L (10-20); Carbon Dioxide 24 mmol/L (23-31); Chloride 104 mmol/L (98-107); Magnesium 1.7 mg/dL (1.6-2.6); Potassium 3.7 mmol/L (3.5-5.1); Sodium 139 mmol/L (136-145)
[2020-10-28] MEDS: cefTRIAXone\\ROCEPHIN 1 GM in Sodium Chloride 0.9% 100 ML IVPB SCH ×2 (00:15→23:50)
[2020-10-28] MEDS ORDERED: Magnesium 2 GM/50 ML 2 GM in Premix Bag 1 BAG IVPB SCH (02:00)
[2020-10-28 05:33] LABS: Hemoglobin 8.3 g/dL (12.0-16.0); Mean Corpuscular HGB CONC 33.1 g/dL (32.0-36.0); Mean Corpuscular Hemoglobin 31.6 pg (27.0-31.0); Mean Corpuscular Volume 95.6 fL (78.0-98.0); Mean Platelet Volume 9.8 fL (7.4-10.4); Platelet Count 67 thou/uL (130-400); Red Blood Cell (RBC) Count 2.61 mill/uL (4.20-5.40); White Blood Cell (WBC) Count 4.6 thou/uL (4.8-10.8)
[2020-10-28 05:39] LABS: Anion Gap 14 mmol/L (10-20); BUN (Urea Nitrogen) 29 mg/dL (9.8-20.1); Calc. Creatinine Clearance 33 mL/min (70-130); Calcium 7.9 mg/dL (7.8-10.44); Carbon Dioxide 24 mmol/L (23-31); Chloride 105 mmol/L (98-107); Glucose 100 mg/dL (80-115); Potassium 3.5 mmol/L (3.5-5.1); Sodium 139 mmol/L (136-145)
[2020-10-28 05:47] LABS: Band 10 % (5-11); Hypochromia SLIGHT = 6-15 cells (100X) (0-5/hpf); Lymphocytes 12 % (21-51); MDiff Complete? YES; Monocytes 10 % (0-10); Neutrophil 68 % (42-75); Platelet Morphology Comment Appears Decreased
[2020-10-28 06:48] LABS: Albumin 3.1 g/dL (3.4-4.8)
[2020-10-28] MEDS: Benzonatate 100 MG CAP PO SCH ×3 (08:43→21:14)
[2020-10-28] MEDS: Spironolactone 100 MG TAB PO SCH (08:43)
[2020-10-28] MEDS: Ascorbic Acid 500 mg Chewable Tablet PO SCH ×2 (08:43→21:14)
[2020-10-28] MEDS: Thiamine 100 MG TAB PO SCH (08:44)
[2020-10-28] MEDS: Ivermectin 3 MG TAB PO SCH (08:44)
[2020-10-28] MEDS: Ferrous Sulfate 325 MG TAB PO SCH ×2 (08:44→17:12)
[2020-10-28] MEDS: Zinc Sulfate 220 MG CAP PO SCH (08:44)
[2020-10-28] MEDS: Pantoprazole 40 MG VIAL IVP SCH (08:45)
[2020-10-28] MEDS: Dexamethasone 4 mg/ml Vial SLOW IVP SCH (08:49)
[2020-10-28] MEDS: predniSONE 20 MG TAB PO SCH (09:41)
[2020-10-28] MEDS: EPOETIN ALFA-EPBX (ESRD) 3,000 UNIT/ML VIAL SC SCH (10:21)
[2020-10-28] MEDS ORDERED: Potassium Chloride 20 MEQ TAB PO SCH (17:00)
[2020-10-28 21:05] LABS: Hemoglobin 9.2 g/dL (12.0-16.0)
[2020-10-28] MEDS: Nadolol 40 MG TAB PO SCH (21:13)
[2020-10-28] MEDS: Cholecalciferol 1,000 UNITS (25 MCG) TAB PO SCH (21:13)
[2020-10-28 21:21] LABS: Glucose 112 mg/dL (80-115)
[2020-10-28 21:30] LABS: Anion Gap 15 mmol/L (10-20); Carbon Dioxide 26 mmol/L (23-31); Chloride 105 mmol/L (98-107); Phosphorus 3.3 mg/dL (2.3-4.7); Sodium 142 mmol/L (136-145)
[2020-10-29 05:39] LABS: CRP (Inflammatory) 3.66 mg/dL (= or < 0.5); Magnesium 2.1 mg/dL (1.6-2.6)
[2020-10-29 05:40] LABS: Anion Gap 16 mmol/L (10-20); BUN (Urea Nitrogen) 38 mg/dL (9.8-20.1); Calc. Creatinine Clearance 26 mL/min (70-130); Calcium 7.6 mg/dL (7.8-10.44); Carbon Dioxide 23 mmol/L (23-31); Chloride 106 mmol/L (98-107); Glucose 107 mg/dL (80-115); Sodium 141 mmol/L (136-145)
[2020-10-29] MEDS: Zinc Sulfate 220 MG CAP PO SCH (08:22)
[2020-10-29] MEDS: Ferrous Sulfate 325 MG TAB PO SCH ×2 (08:23→16:23)
[2020-10-29] MEDS: Ascorbic Acid 500 mg Chewable Tablet PO SCH ×2 (08:24→19:52)
[2020-10-29] MEDS: Spironolactone 100 MG TAB PO SCH ×2 (08:24→08:29)
[2020-10-29] MEDS: Thiamine 100 MG TAB PO SCH (08:24)
[2020-10-29] MEDS: Benzonatate 100 MG CAP PO SCH ×3 (08:24→19:51)
[2020-10-29] MEDS: Dexamethasone 4 mg/ml Vial SLOW IVP SCH (08:24)
[2020-10-29] MEDS: Ivermectin 3 MG TAB PO SCH (08:25)
[2020-10-29] MEDS: Pantoprazole 40 MG VIAL IVP SCH (08:25)
[2020-10-29] MEDS: Sulfameth/Trimethoprim SS 400-80MG TAB PO SCH (08:26)
[2020-10-29 13:51] LABS: HBSAg Index 0.23 S/CO (0-0.99); Hep B Surf Ag Non-Reactive S/CO (NonReactive)
[2020-10-29] MEDS: METHYLPREDNISOLONE SOD SUCC IVPB SCH (14:39)
[2020-10-29] MEDS: SODIUM CHLORIDE 0.45% IVPB SCH (14:39)
[2020-10-29] MEDS ORDERED: methylPREDNISolone Sod Succ/PF 125 MG/2 ML VIAL IVPB SCH (15:00)
[2020-10-29 18:44] LABS: SARS-CoV-2 IgG Ab Non-Reactive (NonReactive); SARS-CoV-2 IgG Index 0.02 S/CO (< 1.40)
[2020-10-29] MEDS: Nadolol 40 MG TAB PO SCH (19:50)
[2020-10-29] MEDS: Cholecalciferol 1,000 UNITS (25 MCG) TAB PO SCH (19:52)
[2020-10-29] MEDS: cefTRIAXone\\ROCEPHIN 1 GM in Sodium Chloride 0.9% 100 ML IVPB SCH (23:16)
[2020-10-30 05:40] LABS: Anion Gap 19 mmol/L (10-20); BUN (Urea Nitrogen) 26 mg/dL (9.8-20.1); Calc. Creatinine Clearance 38 mL/min (70-130); Calcium 7.5 mg/dL (7.8-10.44); Carbon Dioxide 20 mmol/L (23-31); Chloride 103 mmol/L (98-107); Glucose 98 mg/dL (80-115); Potassium 3.7 mmol/L (3.5-5.1); Sodium 138 mmol/L (136-145)
[2020-10-30 06:04] LABS: Hemoglobin 11.2 g/dL (12.0-16.0); Lymphocytes 8 % (21-51); MDiff Complete? YES; Mean Corpuscular HGB CONC 32.2 g/dL (32.0-36.0); Mean Corpuscular Hemoglobin 31.2 pg (27.0-31.0); Mean Corpuscular Volume 96.7 fL (78.0-98.0); Mean Platelet Volume 11.1 fL (7.4-10.4); Monocytes 2 % (0-10); Neutrophil 90 % (42-75); Platelet Count 155 thou/uL (130-400); Platelet Morphology Comment Appears Adequate; Red Blood Cell (RBC) Count 3.59 mill/uL (4.20-5.40); White Blood Cell (WBC) Count 18.4 thou/uL (4.8-10.8)
[2020-10-30] MEDS ORDERED: Sodium Chloride 0.9% 250 ML IV SCH (06:30)
[2020-10-30] MEDS ORDERED: Midodrine HCl 5 MG TAB PO SCH (06:30)
[2020-10-30 07:18] LABS: Lactic Acid 2.1 mmol/L (0.5-2.2)
[2020-10-30] MEDS: Ferrous Sulfate 325 MG TAB PO SCH ×2 (07:22→16:00)
[2020-10-30] MEDS: Spironolactone 100 MG TAB PO SCH (07:23)
[2020-10-30] MEDS: Thiamine 100 MG TAB PO SCH (07:47)
[2020-10-30] MEDS: Benzonatate 100 MG CAP PO SCH ×3 (07:47→20:00)
[2020-10-30] MEDS: Ascorbic Acid 500 mg Chewable Tablet PO SCH ×2 (07:47→20:02)
[2020-10-30] MEDS: Zinc Sulfate 220 MG CAP PO SCH (07:47)
[2020-10-30] MEDS: Pantoprazole 40 MG VIAL IVP SCH (07:48)
[2020-10-30] MEDS ORDERED: Sodium Chloride 0.9% 500 ML IVPB SCH (10:30)
[2020-10-30] MEDS: SODIUM CHLORIDE 0.45% IVPB SCH (14:38)
[2020-10-30] MEDS: METHYLPREDNISOLONE SOD SUCC IVPB SCH (14:38)
[2020-10-30] MEDS: Cholecalciferol 1,000 UNITS (25 MCG) TAB PO SCH (20:02)
[2020-10-30] MEDS: Nadolol 40 MG TAB PO SCH (20:02)
[2020-10-30] MEDS: Midodrine HCl 5 MG TAB PO SCH (21:53)
[2020-10-30] MEDS: cefTRIAXone\\ROCEPHIN 1 GM in Sodium Chloride 0.9% 100 ML IVPB SCH (22:50)
[2020-10-31 05:17] LABS: Hemoglobin 10.5 g/dL (12.0-16.0); Mean Corpuscular HGB CONC 32.5 g/dL (32.0-36.0); Mean Corpuscular Hemoglobin 31.8 pg (27.0-31.0); Mean Corpuscular Volume 97.9 fL (78.0-98.0); Mean Platelet Volume 11.1 fL (7.4-10.4); Platelet Count 126 thou/uL (130-400); RBC Distribution Width 17.3 % (11.5-14.5); Red Blood Cell (RBC) Count 3.29 mill/uL (4.20-5.40); White Blood Cell (WBC) Count 14.4 thou/uL (4.8-10.8)
[2020-10-31 05:31] LABS: Anion Gap 21 mmol/L (10-20); BUN (Urea Nitrogen) 38 mg/dL (9.8-20.1); Calc. Creatinine Clearance 27 mL/min (70-130); Calcium 7.2 mg/dL (7.8-10.44); Carbon Dioxide 18 mmol/L (23-31); Chloride 105 mmol/L (98-107); Glucose 99 mg/dL (80-115); Potassium 3.9 mmol/L (3.5-5.1); Sodium 140 mmol/L (136-145)
[2020-10-31 05:44] LABS: Band 18 % (5-11); Lymphocytes 10 % (21-51); MDiff Complete? YES; Metamyelocyte 1 % (0-0); Monocytes 8 % (0-10); Neutrophil 63 % (42-75); Platelet Morphology Comment Appears Adequate
[2020-10-31] MEDS: Midodrine HCl 5 MG TAB PO SCH ×3 (06:15→22:55)
[2020-10-31] MEDS: Zinc Sulfate 220 MG CAP PO SCH (10:18)
[2020-10-31] MEDS: Ascorbic Acid 500 mg Chewable Tablet PO SCH ×2 (10:18→22:55)
[2020-10-31] MEDS: Benzonatate 100 MG CAP PO SCH ×3 (10:18→22:55)
[2020-10-31] MEDS: Ferrous Sulfate 325 MG TAB PO SCH ×3 (10:18→16:47)
[2020-10-31] MEDS: Pantoprazole 40 MG VIAL IVP SCH (10:19)
[2020-10-31] MEDS: EPOETIN ALFA-EPBX (ESRD) 3,000 UNIT/ML VIAL SC SCH (10:19)
[2020-10-31] MEDS: Thiamine 100 MG TAB PO SCH (10:19)
[2020-10-31] MEDS: Spironolactone 100 MG TAB PO SCH (10:19)
[2020-10-31] MEDS: SODIUM CHLORIDE 0.45% IVPB SCH (12:51)
[2020-10-31] MEDS: METHYLPREDNISOLONE SOD SUCC IVPB SCH (12:51)
[2020-10-31] MEDS: Cholecalciferol 1,000 UNITS (25 MCG) TAB PO SCH (22:55)
[2020-10-31] MEDS: cefTRIAXone\\ROCEPHIN 1 GM in Sodium Chloride 0.9% 100 ML IVPB SCH (22:56)
[2020-10-31] MEDS: Nadolol 40 MG TAB PO SCH (22:58)
[2020-11-01 05:06] LABS: Hemoglobin 10.5 g/dL (12.0-16.0); Mean Corpuscular HGB CONC 32.1 g/dL (32.0-36.0); Mean Corpuscular Hemoglobin 31.3 pg (27.0-31.0); Mean Corpuscular Volume 97.5 fL (78.0-98.0); Mean Platelet Volume 11.3 fL (7.4-10.4); Platelet Count 86 thou/uL (130-400); Red Blood Cell (RBC) Count 3.36 mill/uL (4.20-5.40); White Blood Cell (WBC) Count 10.3 thou/uL (4.8-10.8)
[2020-11-01] MEDS ORDERED: Midodrine HCl 5 MG TAB PO SCH (05:15)
[2020-11-01 05:18] LABS: Lactic Acid 1.5 mmol/L (0.5-2.2)
[2020-11-01 05:21] LABS: Anion Gap 18 mmol/L (10-20); BUN (Urea Nitrogen) 48 mg/dL (9.8-20.1); Calc. Creatinine Clearance 22 mL/min (70-130); Calcium 7.2 mg/dL (7.8-10.44); Carbon Dioxide 17 mmol/L (23-31); Chloride 103 mmol/L (98-107); Glucose 98 mg/dL (80-115); Potassium 4.1 mmol/L (3.5-5.1); Sodium 134 mmol/L (136-145)
[2020-11-01 05:23] LABS: CRP (Inflammatory) 4.29 mg/dL (= or < 0.5)
[2020-11-01 05:27] LABS: Band 3 % (5-11); Hypochromia SLIGHT = 6-15 cells (100X) (0-5/hpf); Lymphocytes 8 % (21-51); MDiff Complete? YES; Monocytes 13 % (0-10); Neutrophil 76 % (42-75); Platelet Morphology Comment Appears Adequate
[2020-11-01] MEDS ORDERED: Albumin 25% 25 GM/100 ML BOT IVPB SCH (07:15)
[2020-11-01] MEDS: Midodrine HCl 5 MG TAB PO SCH (07:32)
[2020-11-01] MEDS: Ferrous Sulfate 325 MG TAB PO SCH (10:45)
[2020-11-01] MEDS: Spironolactone 100 MG TAB PO SCH (10:45)
[2020-11-01] MEDS: Benzonatate 100 MG CAP PO SCH ×3 (10:46→20:22)
[2020-11-01] MEDS: Thiamine 100 MG TAB PO SCH (10:46)
[2020-11-01] MEDS: Zinc Sulfate 220 MG CAP PO SCH (10:46)
[2020-11-01] MEDS: Sulfameth/Trimethoprim SS 400-80MG TAB PO SCH (10:46)
[2020-11-01] MEDS: Ascorbic Acid 500 mg Chewable Tablet PO SCH ×2 (10:46→20:22)
[2020-11-01] MEDS: METHYLPREDNISOLONE SOD SUCC IVPB SCH (11:04)
[2020-11-01] MEDS: SODIUM CHLORIDE 0.45% IVPB SCH (11:04)
[2020-11-01] MEDS: Pantoprazole 40 MG VIAL IVP SCH (11:05)
[2020-11-01] MEDS ORDERED: Haloperidol Lactate 5 MG/ML VIAL IM SCH (12:45)
[2020-11-01] MEDS ORDERED: Vecuronium 10 MG VIAL IVP PRN (13:21)
[2020-11-01] MEDS ORDERED: Ventilator Sedation Protocol 1 EACH FS ONE (13:21)
[2020-11-01] MEDS ORDERED: Morphine 2 MG/ML VIAL SLOW IVP PRN (13:30)
[2020-11-01] MEDS ORDERED: Propofol BOLUS 1,000 MG/100 ML VIAL IV PRN (13:30)
[2020-11-01] MEDS ORDERED: Lorazepam 2 MG/ML VIAL SLOW IVP PRN (13:30)
[2020-11-01] MEDS ORDERED: Fentanyl CADD 100 ML IV SCH (13:30)
[2020-11-01] MEDS ORDERED: Fentanyl BOLUS 250 ML IVPB PRN (13:30)
[2020-11-01] MEDS ORDERED: Norepinephrine 8 MG/0.9% NS 250 ML IVPB SCH (13:30)
[2020-11-01] MEDS ORDERED: Heparin 10,000 UNITS/ 10 ML VIAL ONE (13:56)
[2020-11-01 14:18] LABS: Actual Bicarbonate (HCO3a) 17.3 mEq/L (22-28); Base Excess (BEa) -6.2 mEq/L (-2.0 to +3.0); CO2 Tension 27.6 mmHg (35.0-45.0); Calcium, Ionized (arterial) 1.06 mmol/L (1.12-1.30); Carboxyhemoglobin (COHb) 0.2 gm% (0.0-3.0); Potassium - ABG Lab 3.24 mmol/L (3.70-5.30); pH, Arterial 7.42 (7.35-7.45)
[2020-11-01 14:31] LABS: Puncture Site LBA
[2020-11-01] MEDS: Propofol 1,000 MG/100 ML VIAL IV PRN (15:11)
[2020-11-01] MEDS: Cholecalciferol 1,000 UNITS (25 MCG) TAB PO SCH (20:22)
[2020-11-01 23:52] LABS: Hemoglobin 9.8 g/dL (12.0-16.0); Mean Corpuscular HGB CONC 31.5 g/dL (32.0-36.0); Mean Corpuscular Hemoglobin 30.6 pg (27.0-31.0); Mean Corpuscular Volume 97.1 fL (78.0-98.0); Mean Platelet Volume 7.8 fL (7.4-10.4); Platelet Count 60 thou/uL (130-400); RBC Distribution Width 16.9 % (11.5-14.5); Red Blood Cell (RBC) Count 3.19 mill/uL (4.20-5.40); White Blood Cell (WBC) Count 6.7 thou/uL (4.8-10.8)
[2020-11-01 23:58] LABS: Band 12 % (5-11); Lymphocytes 9 % (21-51); MDiff Complete? YES; Monocytes 6 % (0-10); Neutrophil 73 % (42-75); Platelet Morphology Comment Appears Decreased
[2020-11-02 00:02] LABS: Anion Gap 21 mmol/L (10-20); BUN (Urea Nitrogen) 32 mg/dL (9.8-20.1); Calc. Creatinine Clearance 33 mL/min (70-130); Calcium 7.3 mg/dL (7.8-10.44); Carbon Dioxide 19 mmol/L (23-31); Chloride 104 mmol/L (98-107); Glucose 125 mg/dL (80-115); Magnesium 1.8 mg/dL (1.6-2.6); Potassium 3.3 mmol/L (3.5-5.1); Sodium 141 mmol/L (136-145)
[2020-11-02] MEDS ORDERED: Magnesium 2 GM/50 ML 2 GM in Premix Bag 1 BAG IVPB SCH (00:30)
[2020-11-02] MEDS: DOPamine 400 MG/D5W 250 ML 250 ML IVPB SCH ×2 (00:43→20:42)
[2020-11-02 05:13] LABS: Anion Gap 23 mmol/L (10-20); BUN (Urea Nitrogen) 34 mg/dL (9.8-20.1); Calc. Creatinine Clearance 31 mL/min (70-130); Calcium 7.5 mg/dL (7.8-10.44); Carbon Dioxide 19 mmol/L (23-31); Chloride 103 mmol/L (98-107); Glucose 142 mg/dL (80-115); Potassium 3.5 mmol/L (3.5-5.1); Sodium 141 mmol/L (136-145)
[2020-11-02 05:19] LABS: Band 31 % (5-11); Hemoglobin 11.5 g/dL (12.0-16.0); Lymphocytes 13 % (21-51); MDiff Complete? YES; Mean Corpuscular HGB CONC 32.9 g/dL (32.0-36.0); Mean Corpuscular Hemoglobin 31.8 pg (27.0-31.0); Mean Corpuscular Volume 96.5 fL (78.0-98.0); Mean Platelet Volume 11.7 fL (7.4-10.4); Metamyelocyte 1 % (0-0); Monocytes 4 % (0-10); Neutrophil 51 % (42-75); Platelet Count 87 thou/uL (130-400); Platelet Morphology Comment Appears Decreased; RBC Distribution Width 17.1 % (11.5-14.5); Red Blood Cell (RBC) Count 3.61 mill/uL (4.20-5.40); White Blood Cell (WBC) Count 9.6 thou/uL (4.8-10.8)
[2020-11-02] MEDS: Propofol 1,000 MG/100 ML VIAL IV PRN (08:17)
[2020-11-02] MEDS ORDERED: Lidocaine 1% w/Epinephrine 1:100K 20 ML VIAL ONE ×3 (08:18→08:28)
[2020-11-02] MEDS: Pantoprazole 40 MG VIAL IVP SCH (08:59)
[2020-11-02] MEDS ORDERED: Cefepime 1 GM in Sodium Chloride 0.9% 100 ML IVPB SCH ×2 (09:00→13:30)
[2020-11-02 09:20] LABS: Actual Bicarbonate (HCO3a) 15.3 mEq/L (22-28); Base Excess (BEa) -8.7 mEq/L (-2.0 to +3.0); CO2 Tension 27.4 mmHg (35.0-45.0); Calcium, Ionized (arterial) 1.04 mmol/L (1.12-1.30); Carboxyhemoglobin (COHb) 0.5 gm% (0.0-3.0); Hemoglobin (Hb) 11.5 g/dL (12.0-16.0); Potassium - ABG Lab 3.32 mmol/L (3.70-5.30); pH, Arterial 7.37 (7.35-7.45)
[2020-11-02 09:23] LABS: Puncture Site LRA
[2020-11-02] MEDS: Ascorbic Acid 500 mg Chewable Tablet PO SCH ×2 (13:11→20:17)
[2020-11-02] MEDS: Thiamine 100 MG TAB PO SCH (13:12)
[2020-11-02] MEDS: Zinc Sulfate 220 MG CAP PO SCH (13:12)
[2020-11-02 13:52] VITALS: BMI 23.3
[2020-11-02] MEDS: Sodium Chloride 0.9% 1,000 ML IV SCH (14:36)
[2020-11-02] MEDS: EPOETIN ALFA-EPBX (ESRD) 3,000 UNIT/ML VIAL SC SCH (14:36)
[2020-11-02] MEDS: METHYLPREDNISOLONE SOD SUCC IVPB SCH (15:11)
[2020-11-02] MEDS: SODIUM CHLORIDE 0.45% IVPB SCH (15:11)
[2020-11-02 18:45] VITALS: BP 63/28
[2020-11-02] MEDS: Cholecalciferol 1,000 UNITS (25 MCG) TAB PO SCH (20:17)
[2020-11-03] MEDS: Sodium Chloride 0.9% 1,000 ML IV SCH ×2 (00:08→10:25)
[2020-11-03] MEDS: Ascorbic Acid 500 mg Chewable Tablet PO SCH (10:25)
[2020-11-03] MEDS: Zinc Sulfate 220 MG CAP PO SCH (10:26)
[2020-11-03] MEDS: Thiamine 100 MG TAB PO SCH (10:26)
[2020-11-03] MEDS: Pantoprazole 40 MG VIAL IVP SCH (10:26)
[2020-11-03] MEDS: Morphine 4 MG/ML VIAL SLOW IVP PRN ×2 (11:45→12:29)
[2020-11-03 12:40] VITALS: TEMP 97.2
[2020-11-03] MEDS ORDERED: Cefepime 0.5 GM, Admixture Fee 1 EACH in Sodium Chloride 0.9% 100 ML IVPB SCH (18:00)
== END 2020-11-03 12:52 | disposition expired | DRG 208 ==
LOC: ERS 01:39 → ERHOLD 04:31 → CCU 08:28 → 2SW 10-26 18:01 → CCU 11-01 13:09
PROVIDERS: ADMIT Student in an Organized Health Care Education/Training Program; ATTEND Family Medicine
PROC: 06L38CZ Occlusion of Esophageal Vein with Extraluminal Device, Via Natural or Artificial Opening Endoscopic (ICD-10-PCS; principal; 2020-10-23)
PROC: 8E0ZXY6 Isolation (ICD-10-PCS; 2020-10-23)
PROC: 0BH17EZ Insertion of Endotracheal Airway into Trachea, Via Natural or Artificial Opening (ICD-10-PCS; 2020-10-23)
PROC: 5A1945Z Respiratory Ventilation, 24-96 Consecutive Hours (ICD-10-PCS; 2020-10-23)
PROC: 30233N1 Transfusion of Nonautologous Red Blood Cells into Peripheral Vein, Percutaneous Approach (ICD-10-PCS; 2020-10-24)
PROC: 02HV33Z Insertion of Infusion Device into Superior Vena Cava, Percutaneous Approach (ICD-10-PCS; 2020-10-25)
PROC: 5A1D70Z Performance of Urinary Filtration, Intermittent, Less than 6 Hours Per Day (ICD-10-PCS; 2020-10-25)
PROC: XW13325 Transfusion of Convalescent Plasma (Nonautologous) into Peripheral Vein, Percutaneous Approach, New Technology Group 5 (ICD-10-PCS; 2020-10-29)
PROC: 0BH17EZ Insertion of Endotracheal Airway into Trachea, Via Natural or Artificial Opening (ICD-10-PCS; 2020-11-01)
PROC: 5A1945Z Respiratory Ventilation, 24-96 Consecutive Hours (ICD-10-PCS; 2020-11-01)
PROC: 0W9B30Z Drainage of Left Pleural Cavity with Drainage Device, Percutaneous Approach (ICD-10-PCS; 2020-11-02)
PROC: 3E033XZ Introduction of Vasopressor into Peripheral Vein, Percutaneous Approach (ICD-10-PCS; 2020-11-02)
PROC: 5A12012 Performance of Cardiac Output, Single, Manual (ICD-10-PCS; 2020-11-03)
DX: U07.1 COVID-19 (principal); L89.154 Pressure ulcer of sacral region, stage 4; N18.6 End stage renal disease; I85.11 Secondary esophageal varices with bleeding; J12.82 Pneumonia due to coronavirus disease 2019; J96.01 Acute respiratory failure with hypoxia; R18.8 Other ascites; D61.818 Other pancytopenia; K76.6 Portal hypertension; E27.3 Drug-induced adrenocortical insufficiency; N17.9 Acute kidney failure, unspecified; E46 Unspecified protein-calorie malnutrition; J93.9 Pneumothorax, unspecified; D62 Acute posthemorrhagic anemia; Z66 Do not resuscitate; Z51.5 Encounter for palliative care; K74.60 Unspecified cirrhosis of liver; R57.8 Other shock; E87.6 Hypokalemia; I77.6 Arteritis, unspecified; N05.9 Unspecified nephritic syndrome with unspecified morphologic changes; K31.89 Other diseases of stomach and duodenum; M32.9 Systemic lupus erythematosus, unspecified; T38.0X5A Adverse effect of glucocorticoids and synthetic analogues, initial encounter; I46.9 Cardiac arrest, cause unspecified; R00.1 Bradycardia, unspecified; R62.7 Adult failure to thrive; Z88.5 Allergy status to narcotic agent; Z79.52 Long term (current) use of systemic steroids; Z79.899 Other long term (current) drug therapy; Z99.2 Dependence on renal dialysis; Z86.19 Personal history of other infectious and parasitic diseases; Z68.23 Body mass index [BMI] 23.0-23.9, adult; I95.3 Hypotension of hemodialysis
CPT/HCPCS: 36415; 36416; 36430; 36556; 36600; 70450; 71045; 80048; 80053; 82728; 82805; 83540; 83550; 83605; 83735; 84100; 85025; 85610; 85730; 86140; 86769; 86850; 86900; 86901; 87340; 87635; 90935; 92950; 93005; 93010; 94002; 94003; 96365; 96366; 96368; C9113; G0257; J0692; J0696; J1100; J1265; J1644; J1720; J2270; J2354; J2597; J2704; J2930; J3010; J3475; J3490; J7030; J7050; J7512; P9016; P9017; P9045; P9047; Q5105; U0002; U0003; U0005